=== PATIENT | male | born 1935 | race Caucasian/White ===

== ENCOUNTER 2018-02-25 14:17 | Emergency (ER) | payer MEDICARE, BC ==
[2018-02-25] MEDS ORDERED: Ondansetron 4 MG/2 ML SDV IVPUSH ONE (15:01)
[2018-02-25] MEDS ORDERED: Sodium Chloride 0.9% 500 ML IV ONE (15:01)
[2018-02-25] MEDS ORDERED: Sodium Chloride 0.9% 10 ML Syringe FLUSH PRN (15:01)
[2018-02-25] MEDS: HYDROmorphone 1 MG/ML Syringe IVPUSH ONE ×2 (15:27→16:07)
--- NOTE | 2018-02-25 15:43 | EDM.PDOC ---
ED HPI GENERAL MEDICAL PROBLEM - General Chief Complaint: Abdominal Pain Stated Complaint: PAIN SENT BY JUAREZ Time Seen by Provider: 02/25/18 14:45 Source of Information: Reports: Patient, RN Notes Reviewed - History of Present Illness INITIAL COMMENTS - FREE TEXT/NARRATIVE: 82-year-old male is been brought in by family with abdominal pain, abdominal distention nausea, vomiting 11 days status post surgery for pancreatic cancer. He states they did take out the tail of his pancreas and also his spleen 11 days ago. He was in the hospital 4 days and now has been home 6-7 days doing relatively okay until this morning when the above symptoms started. Has not had much appetite. He has not been eating well. Has been constipated, did have a bowel movement yesterday. No fever or chills. He started losing some blood tinged drainage from an area of his incision last evening that continues today. Abdomen Pain Score (Numeric/FACES): 8 - Related Data Allergies Allergy/AdvReac Type Severity Reaction Status Date / Time almond Allergy Facial Verified 12/07/17 16:19 Swelling lisinopril Allergy Swollen Verified 01/11/18 15:04 Tongue peanut Allergy Facial Verified 12/07/17 16:19 Swelling Home Meds: Home Meds Losartan Potassium 100 mg PO DAILY 12/07/17 [History] Past Medical History HEENT History: Reports: Macular Degeneration Cardiovascular History: Reports: Hypertension Genitourinary History: Reports: Prostate Disorder, Retention, Urinary, Other ( See Below) Other Genitourinary History: bladder mass Musculoskeletal History: Reports: Osteoarthritis, Osteoporosis Oncologic (Cancer) History: Reports: Bladder, Pancreatic Other Oncologic History: 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 Social & Family History - Family History Family Medical History: Noncontributory - Tobacco Use Smoking Status *Q: Former Smoker Used Tobacco, but Quit: Yes Month/Year Tobacco Last Used: 1977 - Caffeine Use Caffeine Use: Reports: Coffee - Living Situation & Occupation Living situation: Reports: Occupation: Retired ED ROS GENERAL - Review of Systems Review Of Systems: See Below Constitutional: Denies: Fever, Chills HEENT: Denies: Rhinitis, Sinus Problem, Throat Pain Respiratory: Denies: Shortness of Breath, Wheezing, Cough Cardiovascular: Denies: Chest Pain GI/Abdominal: Reports: Abdominal Pain (Moderate mid abdominal discomfort moderate upper and lower mid abdominal discomfort), Decreased Appetite (Since going home one week ago), Nausea, Vomiting (Emesis 1 earlier this morning). Denies: Diarrhea Musculoskeletal: Reports: Back Pain (Mild) Skin: Reports: Other (He has had some drainage from the lower area of his incision last evening, continuing today, blood tinged fluid.) ED EXAM, GI/ABD - Physical Exam Exam: See Below General Appearance: Alert, Mild Distress Eyes: Bilateral: Normal Appearance Throat/Mouth: Normal Inspection, Normal Oropharynx Head: Atraumatic. No: Facial Swelling Neck: Supple, Full Range of Motion, Other Respiratory/Chest: No Respiratory Distress (No JVD), Lungs Clear, Normal Breath Sounds. No: Rales, Rhonchi, Wheezing Cardiovascular: Regular Rate, Rhythm GI/Abdominal Exam: Other (He has a midline abdominal incision for the most part appears to be healing well but with very mild separation of the lower incision and blood tinged fluid on the dressing over that area., There is tenderness of the upper mid and lower abdomen along the incision.). No: Guarding, Rebound Back Exam: No: CVA Tenderness (L), CVA Tenderness (R) Extremities: Normal Inspection. No: Pedal Edema, Leg Pain Skin Exam: Warm, Dry, Normal Color Course - Vital Signs Last Recorded V/S: Last Vital Signs Temp 98.0 F 02/25/18 14:34 Pulse 86 02/25/18 14:34 Resp 20 02/25/18 14:34 BP 155/75 H 02/25/18 14:34 Pulse Ox 96 02/25/18 14:34 - Orders/Labs/Meds Orders: Active Orders 24 hr Category Date Time Status Peripheral IV Care [RC] . DIRECTED Care 02/25/18 15:01 Active CULTURE BLOOD [BC] Stat Lab 02/25/18 20:25 Received CULTURE BLOOD [BC] Stat Lab 02/25/18 20:35 Received Sodium Chloride 0.9% [Saline Flush] Med 02/25/18 15:01 Active 10 ml FLUSH ASDIRECTED PRN Vancomycin [Vancocin] 1 gm Med 02/25/18 20:59 Active Sodium Chloride 0.9% [Normal Saline] 250 ml IV ONETIME Blood Culture x2 Reflex Set [OM.PC] Stat Oth 02/25/18 20:04 Ordered Peripheral IV Insertion Adult [OM.PC] Stat Oth 02/25/18 15:00 Ordered Medication Orders Vancomycin HCl 1 gm/ Sodium (Chloride) 250 mls @ 250 mls/hr IV ONETIME ONE Stop: 02/25/18 21:58 Sodium Chloride (Saline Flush) 10 ml FLUSH ASDIRECTED PRN PRN Reason: Keep Vein Open Last Admin: 02/25/18 15:28 Dose: 10 ml Labs: Laboratory Tests 02/25/18 02/25/18 02/25/18 Range/Units 15:17 15:17 19:38 WBC 20.84 H (4.23-9.07) K/mm3 RBC 5.09 (4.63-6.08) M/mm3 Hgb 15.4 (13.7-17.5) gm/L Hct 44.9 (40.1-51.0) % MCV 88.2 (79.0-92.2) fl MCH 30.3 (25.7-32.2) pg MCHC 34.3 (32.2-35.5) g/dl RDW Std Deviation 41.1 (35.1-43.9) fL Plt Count 435 H (163-337) K/mm3 MPV 11.2 (9.4-12.3) fl Neut % (Auto) 94.3 H (34.0-67.9) % Lymph % (Auto) 1.3 L (21.8-53.1) % [place] % (Auto) 3.9 L (5.3-12.2) % Eos % (Auto) 0 L (0.8-7.0) Baso % (Auto) 0.1 (0.1-1.2) % Neut # (Auto) 19.62 H (1.78-5.38) K/mm3 Lymph # (Auto) 0.28 L (1.32-3.57) K/mm3 [place] # (Auto) 0.82 (0.30-0.82) K/mm3 Eos # (Auto) 0.00 L (0.04-0.54) K/mm3 Baso # (Auto) 0.03 (0.01-0.08) K/mm3 Manual Slide Review Abnormal smear Sodium 132 L (136-145) mEq/L Potassium 4.5 (3.5-5.1) mEq/L Chloride 94 L (98-107) mEq/L Carbon Dioxide 26 (21-32) mEq/L Anion Gap 16.5 H (5-15) BUN 17 (7-18) mg/dL Creatinine 1.1 (0.7-1.3) mg/dL Est Cr Clr Drug Dosing 47.57 mL/min Estimated GFR (MDRD) > 60 (>60) mL/min BUN/Creatinine Ratio 15.5 (14-18) Glucose 360 H (83-115) mg/dL Calcium 9.7 (8.5-10.1) mg/dL Total Bilirubin 0.9 (0.2-1.0) mg/dL AST 28 (15-37) U/L ALT 38 (16-63) U/L Alkaline Phosphatase 104 (46-116) U/L Total Protein 7.7 (6.4-8.2) g/dl Albumin 3.2 L (3.4-5.0) g/dl Globulin 4.5 gm/dL Albumin/Globulin Ratio 0.7 L (1-2) Lipase 66885 H (73-393) U/L Urine Color Yellow (Yellow) Urine Appearance Clear (Clear) Urine pH 5.5 (5.0-8.0) Ur Specific [place] 1.015 (1.005-1.030) Urine Protein 1+ H (Negative) Urine Glucose (UA) 2+ H (Negative) Urine Ketones 1+ H (Negative) Urine Occult Blood Trace-intact H (Negative) Urine Nitrite Negative (Negative) Urine Bilirubin 1+ H (Negative) Urine Urobilinogen 1.0 (0.2-1.0) Ur Leukocyte Esterase Negative (Negative) Urine RBC 0-5 (0-5) /hpf Urine WBC 0-5 (0-5) /hpf Ur Epithelial Cells Not seen (0-5) /hpf Urine Bacteria Rare (FEW) /hpf Fine Granular Casts 0-5 (0-5) /lpf Urine Mucus Rare H (FEW) /hpf Meds: Medications Generic Name Dose Route Start Last Admin Trade Name Freq PRN Reason Stop Dose Admin Vancomycin HCl 1 gm/ Sodium 250 mls @ 250 mls/hr 02/25/18 20:59 Chloride IV 02/25/18 21:58 ONETIME ONE Sodium Chloride 10 ml 02/25/18 15:01 02/25/18 15:28 Saline Flush FLUSH 10 ml ASDIRECTED PRN Administration Keep Vein Open Discontinued Medications Generic Name Dose Route Start Last Admin Trade Name Mayito PRN Reason Stop Dose Admin Acetaminophen 975 mg 02/25/18 19:52 02/25/18 20:15 Tylenol PO 02/25/18 19:53 975 mg NOW ONE Administration Diatrizoate Meglum/Diatrizoate Sod 90 ml 02/25/18 16:23 02/25/18 17:56 Gastrografin 37% PO 02/25/18 16:24 90 ml ONETIME ONE Administration Hydromorphone HCl 1 mg 02/25/18 15:13 02/25/18 16:07 Dilaudid IVPUSH 02/25/18 15:14 0.5 mg ONETIME ONE Administration Hydromorphone HCl 1 mg 02/25/18 20:55 Dilaudid IVPUSH 02/25/18 20:56 ONETIME ONE Sodium Chloride 500 mls @ 999 mls/hr 02/25/18 15:01 02/25/18 15:26 Normal Saline IV 02/25/18 15:31 999 mls/hr .BOLUS ONE Administration Piperacillin Sod/Tazobactam 100 mls @ 200 mls/hr 02/25/18 19:29 02/25/18 20: 39 Sod 4.5 gm/ Sodium Chloride IV 02/25/18 19:58 200 mls/hr ONETIME ONE Administration Iopamidol 100 ml 02/25/18 16:23 02/25/18 17:56 Isovue-300 (61%) IVPUSH 02/25/18 16:24 100 ml ONETIME ONE Administration Metoclopramide HCl 5 mg 02/25/18 16:13 02/25/18 16:25 Reglan IVPUSH 02/25/18 16:14 5 mg ONETIME ONE Administration Ondansetron HCl 4 mg 02/25/18 15:01 02/25/18 15:26 Zofran IVPUSH 02/25/18 15:02 4 mg ONETIME ONE Administration Sodium Chloride 10 ml 02/25/18 16:23 02/25/18 17:56 Saline Flush FLUSH 02/25/18 16:24 10 ml ONETIME ONE Administration - Re-Assessments/Exams Free Text/Narrative Re-Assessment/Exam: 02/25/18 19:45. White blood count initially came back quite high, over 20,000 with somewhat of a left shift. Therefore it was felt that he did need to have CT of his abdomen to rule out abscess or other obvious infectious process. CT was done and does show fluid in the area of surgery involving the left spleen, tail of the pancreas. There was no abscess or other obvious area of infection intra-abdominally. Chest x-ray did show some haziness of the right lung base read out as not cardiomegaly and some pulmonary vascular congestion but no infiltrate. Ua still pending. 02/25/18 20:30. I did discuss treatment options with patient and family, being admitted here for IV antibiotics and further treatment versus transfer back to [place]. I also did consult with Dr. Villalobos, our Hospitalist. After further discussion patient and family have determined they would prefer transfer back to [facility]. I discussed this with , Hospitalist, [facility] who does accept patient in transfer. 02/25/18 21:10. Ua has come back neg. 4.5 gram zosyn almost done, will than start vancomycin 1 gram IV, he will be transferred by ground ambulance. Departure - Departure Time of Disposition: 20:25 Disposition: DC/Tfer to Acute Hospital 02 Condition: Serious Clinical Impression: Abdominal pain Qualifiers: Abdominal location: generalized Qualified Code(s): R10.84 - Generalized abdominal pain Fever Qualifiers: Fever type: unspecified Qualified Code(s): R50.9 - Fever, unspecified Pancreatic cancer Qualifiers: Pancreatic malignancy location: unspecified Qualified Code(s): C25.9 - Malignant neoplasm of pancreas, unspecified Vomiting Qualifiers: Vomiting type: unspecified Vomiting Intractability: non-intractable - Discharge Information Referrals: Ketan Acevedo MD [Primary Care Provider] - Forms: ED Department Discharge - My Orders Last 24 Hours: My Active Orders 02/25/18 15:00 Peripheral IV Insertion Adult [OM.PC] Stat 02/25/18 15:01 Peripheral IV Care [RC] . DIRECTED Sodium Chloride 0.9% [Saline Flush] 10 ml FLUSH ASDIRECTED PRN 02/25/18 20:04 Blood Culture x2 Reflex Set [OM.PC] Stat 02/25/18 20:25 CULTURE BLOOD [BC] Stat 02/25/18 20:35 CULTURE BLOOD [BC] Stat 02/25/18 20:59 Vancomycin [Vancocin] 1 gm Sodium Chloride 0.9% [Normal Saline] 250 ml IV ONETIME - Assessment/Plan Last 24 Hours: My Active Orders 02/25/18 15:00 Peripheral IV Insertion Adult [OM.PC] Stat 02/25/18 15:01 Peripheral IV Care [RC] . DIRECTED Sodium Chloride 0.9% [Saline Flush] 10 ml FLUSH ASDIRECTED PRN 02/25/18 20:04 Blood Culture x2 Reflex Set [OM.PC] Stat 02/25/18 20:25 CULTURE BLOOD [BC] Stat 02/25/18 20:35 CULTURE BLOOD [BC] Stat 02/25/18 20:59 Vancomycin [Vancocin] 1 gm Sodium Chloride 0.9% [Normal Saline] 250 ml IV ONETIME
[2018-02-25] MEDS ORDERED: Metoclopramide 10 MG/2 ML SDV IVPUSH ONE (16:13)
[2018-02-25] MEDS ORDERED: Iopamidol 612 MG/ML 100 ML Bottle IVPUSH ONE (16:23)
[2018-02-25] MEDS ORDERED: Diatrizoate Meglumine/Diatrizoate Sodium 37% 120 ML Bottle PO ONE (16:23)
[2018-02-25] MEDS ORDERED: Sodium Chloride 0.9% 10 ML Syringe FLUSH ONE (16:23)
--- NOTE | 2018-02-25 17:38 | CR ---
Abdomen: Supine and upright views of the abdomen were obtained. Comparison: Prior CT abdomen and pelvis exam of 12/06/17. Surgical clips are noted within the upper abdomen. Bowel gas pattern is normal. No free air is seen. Scattered degenerative change is noted within the spine. Partially visualized infusion catheter is seen within the chest. Calcifications are seen within the pelvis compatible with phleboliths and mild arterial calcification. Impression: 1. Incidental findings. Diagnostic code #2
--- NOTE | 2018-02-25 18:19 | CT ---
CT abdomen and pelvis Technique: Multiple axial sections were obtained from above the dome of the diaphragm inferiorly through the pubic symphysis. Intravenous and oral contrast was given. Delayed images were obtained through the bladder. Comparison: Prior CT abdomen and pelvis study of 12/06/17. Findings: Fluid is seen within the expected region of the pancreatic body and tail. Fluid is seen within the expected region of the spleen. No spleen is seen. Body and tail the pancreas are also not seen. Previous cholecystectomy is noted. Haziness is noted within the mesentery. Visualized lung bases shows a pleural thickening within the left base with calcification. Atelectasis seen within both lung bases as well as small subpleural blebs. Liver contains no focal abnormality. Adrenal glands show no nodule. Kidneys show no hydronephrosis or mass. Adrenal glands show no nodule. Aorta shows atherosclerotic calcification with mild areas of ectasia. No aneurysm is seen. Very small fat-containing umbilical hernia is seen. Soft tissue abnormality again noted within the anterior bladder. Small amount of fluid seen within the right inguinal hernia. Prostate calcifications are seen. Small amount of fluid seen within the dependent pelvis. Appendix is seen and is normal. No bowel dilatation is seen. Bone window settings were reviewed which shows scattered degenerative change within the spine. Delayed images shows contrast within the distal ureters and bladder. Impression: 1. Fluid in the expected region of the pancreatic body and tail and in the area of the spleen. Previous partial pancreatectomy is seen as well as splenectomy. Prior cholecystectomy also noted. Fluid is also seen within a right inguinal hernia as well as within the dependent pelvis. Fluid has simple Hounsfield unit measurements and most likely represents areas of seroma and fluid from previous surgery. 2. Very small fat-containing umbilical hernia. 3. Haziness within the mesentery most likely postsurgical in etiology. 4. Soft tissue thickening within the anterior bladder most likely representing bladder carcinoma which is similar to previous exam. 5. Other incidental findings as noted above. Diagnostic code #9
[2018-02-25] MEDS ORDERED: Piperacillin/Tazobactam 4.5 GM in Sodium Chloride 0.9% 100 ML IV ONE (19:29)
[2018-02-25] MEDS ORDERED: Acetaminophen 325 MG Tab PO ONE (19:52)
--- NOTE | 2018-02-25 20:06 | CR ---
Chest: Portable view of the chest was obtained. Comparison: No prior chest x-ray is available. Heart is enlarged. Slight tortuosity of the thoracic aorta is seen. Superior mediastinum is slightly widened. Infusion catheter is seen entering from the left side. Pulmonary vessels are minimally congested. Lungs otherwise are clear. Bony structures are osteopenic. Impression: 1. Cardiomegaly. 2. Minimal pulmonary vascular congestion. 3. Widened superior mediastinum, difficult to exclude adenopathy or etiology from tortuous great vessels. Consider non-emergent chest CT to further evaluate. Diagnostic code #9
[2018-02-25] MEDS ORDERED: HYDROmorphone 1 MG/ML Syringe IVPUSH ONE (20:55)
== END 2018-02-25 21:23 ==
LOC: JD.ED 14:17
DX: C25.9 Malignant neoplasm of pancreas, unspecified (principal); R11.2 Nausea with vomiting, unspecified; I10 Essential (primary) hypertension; Z91.018 Allergy to other foods; Z91.010 Allergy to peanuts; Z79.899 Other long term (current) drug therapy; Z87.891 Personal history of nicotine dependence
CPT/HCPCS: 36415; 71045; 74019; 74177; 80053; 81001; 83690; 85025; 87040; 96361; 96365; 96367; 96375; 96376; 99285; A9270; J1170; J2405; J2543; J2765; J3370; J7030; J7040; J7050; Q9963; Q9967

== ENCOUNTER 2018-06-07 12:44 | Emergency (ER) | payer MEDICARE, BC ==
--- NOTE | 2018-06-07 13:56 | EDM.PDOC ---
ED HPI GENERAL MEDICAL PROBLEM - General Chief Complaint: Genitourinary Problem Stated Complaint: CATHETER ISSUES Time Seen by Provider: 06/07/18 13:03 Source of Information: Reports: Patient, RN Notes Reviewed History Limitations: Reports: No Limitations - History of Present Illness INITIAL COMMENTS - FREE TEXT/NARRATIVE: Patient is an 82-year-old male who presents to the ED for the evaluation of blood in his urine. The patient has a history of bladder cancer for 6 months, and has had numerous urinary catheter since then. He is a patient of Dr. Cabrera. He states that he had a recent catheter placed on Wednesday for possible hydronephrosis and has been having increased bleeding with clots in his urine since Wednesday. He notes that the catheter insertion was quite traumatic in nature. He thought that the nurse didn't use any lubrication to pass a catheter into his urethra. He notes that he normally passes some small clots but not in this amount. His daughter did speak with the urologist and the urologist had some concerns to have the catheter irrigated and to have a possible culture of the urine. The patient notes that he did have an episode of dizziness after getting up quickly this morning as well. The patient does note that he has a follow-up appointment with urology this Wednesday06/10/18. He denies any pain at this time. - Related Data Allergies Allergy/AdvReac Type Severity Reaction Status Date / Time almond Allergy Facial Verified 12/07/17 16:19 Swelling lisinopril Allergy Swollen Verified 01/11/18 15:04 Tongue morphine Allergy Hives Verified 06/07/18 13:02 Home Meds: Home Meds NIFEdipine [Procardia] 1 tab PO DAILY 06/07/18 [History] Oxybutynin 1 tab PO DAILY 06/07/18 [History] cephALEXin [Keflex] 500 mg PO TID #21 cap 06/07/18 [Rx] glipiZIDE [Glucotrol XL] 1 tab PO DAILY 06/07/18 [History] Past Medical History HEENT History: Reports: Macular Degeneration Cardiovascular History: Reports: Hypertension Genitourinary History: Reports: Prostate Disorder, Retention, Urinary, Other ( See Below) Other Genitourinary History: bladder mass Musculoskeletal History: Reports: Osteoarthritis, Osteoporosis Endocrine/Metabolic History: Reports: Diabetes, Type II Oncologic (Cancer) History: Reports: Bladder, Pancreatic Other Oncologic History: 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 - Past Surgical History GI Surgical History: Reports: Other (See Below) Other GI Surgeries/Procedures: spleenectomy and partical pancreas removal Social & Family History - Family History Family Medical History: Noncontributory - Tobacco Use Smoking Status *Q: Former Smoker Used Tobacco, but Quit: Yes Month/Year Tobacco Last Used: 1977 - Caffeine Use Caffeine Use: Reports: Coffee - Recreational Drug Use Recreational Drug Use: No - Living Situation & Occupation Living situation: Reports: Occupation: Retired ED ROS GENERAL - Review of Systems Review Of Systems: See Below Constitutional: Denies: Fever, Chills HEENT: Reports: No Symptoms Respiratory: Reports: No Symptoms Cardiovascular: Reports: No Symptoms Endocrine: Reports: No Symptoms GI/Abdominal: Reports: No Symptoms : Reports: Hematuria. Denies: Dysuria, Urinary Retention Musculoskeletal: Reports: No Symptoms Skin: Reports: No Symptoms Neurological: Reports: No Symptoms Psychiatric: Reports: No Symptoms Hematologic/Lymphatic: Reports: No Symptoms Immunologic: Reports: No Symptoms ED EXAM, RENAL/ - Physical Exam Exam: See Below Exam Limited By: No Limitations General Appearance: Alert, WD/WN, No Apparent Distress Eye Exam: Bilateral Eye: Normal Inspection Respiratory/Chest: No Respiratory Distress, Lungs Clear, Normal Breath Sounds, No Accessory Muscle Use, Chest Non-Tender Cardiovascular: Normal Peripheral Pulses, Regular Rate, Rhythm, No Murmur GI/Abdominal: Normal Bowel Sounds, Soft, Non-Tender, No Distention, No Mass (Male) Exam: Normal Inspection (with urinary catheter in place, slight drainage noted at urethral opening.) Extremities: Normal Inspection, Normal Capillary Refill Neurological: Alert, Oriented, Normal Cognition, No Motor/Sensory Deficits Psychiatric: Normal Affect, Normal Mood Skin Exam: Warm, Dry, Intact, Normal Color, No Rash Course - Vital Signs Last Recorded V/S: Last Vital Signs Temp 98.2 F 06/07/18 12:56 Pulse 96 06/07/18 12:56 Resp 18 06/07/18 12:56 BP 137/72 06/07/18 12:56 Pulse Ox 98 06/07/18 12:56 - Orders/Labs/Meds Orders: Active Orders 24 hr Category Date Time Status CULTURE URINE [RM] Stat Lab 06/07/18 14:11 Ordered Labs: Laboratory Tests 06/07/18 06/07/18 Range/Units 13:30 14:11 WBC 7.36 (4.23-9.07) K/mm3 RBC 4.13 L (4.63-6.08) M/mm3 Hgb 11.4 L (13.7-17.5) gm/L Hct 35.6 L (40.1-51.0) % MCV 86.2 (79.0-92.2) fl MCH 27.6 (25.7-32.2) pg MCHC 32.0 L (32.2-35.5) g/dl RDW Std Deviation 44.7 H (35.1-43.9) fL Plt Count 279 (163-337) K/mm3 MPV 12.0 (9.4-12.3) fl Neut % (Auto) 60.4 (34.0-67.9) % Lymph % (Auto) 23.6 (21.8-53.1) % [place] % (Auto) 12.5 H (5.3-12.2) % Eos % (Auto) 2.0 (0.8-7.0) Baso % (Auto) 0.5 (0.1-1.2) % Neut # (Auto) 4.44 (1.78-5.38) K/mm3 Lymph # (Auto) 1.74 (1.32-3.57) K/mm3 [place] # (Auto) 0.92 H (0.30-0.82) K/mm3 Eos # (Auto) 0.15 (0.04-0.54) K/mm3 Baso # (Auto) 0.04 (0.01-0.08) K/mm3 Manual Slide Review Abnormal smear Urine Color Red H (Yellow) Urine Appearance Turbid H (Clear) Urine pH 6.5 (5.0-8.0) Ur Specific [place] 1.020 (1.005-1.030) Urine Protein 3+ H (Negative) Urine Glucose (UA) 2+ H (Negative) Urine Ketones Negative (Negative) Urine Occult Blood 3+ H (Negative) Urine Nitrite Positive H (Negative) Urine Bilirubin 1+ H (Negative) Urine Urobilinogen 1.0 (0.2-1.0) Ur Leukocyte Esterase 3+ H (Negative) Urine RBC Too numerous to cnt H (0-5) /hpf Urine WBC 40-50 H (0-5) /hpf Urine WBC Clumps Few (NOT SEEN) /hpf Ur Epithelial Cells 0-5 (0-5) /hpf Urine Bacteria Moderate H (FEW) /hpf Urine Mucus Not seen (FEW) /hpf - Re-Assessments/Exams Free Text/Narrative Re-Assessment/Exam: 06/07/18 13:57 Patient presents to the ED for the evaluation of blood in his catheter bag. I have ordered a urinalysis with culture, and we'll have the nurse irrigate the catheter if indicated. I have also ordered a CBC to see if he has lost a significant amount of blood over the weekend. His story is suspicious for a traumatic catheter insertion in nature but he should still not be having this amount of bleeding 4 days post insertion. 06/07/18 15:24 Patient's UA is back and demonstrate a positive UTI at this time, I did call Dr. Lan at [facility] in [place], and he suggests using Keflex 500 mg 3 times a day for at least 7 days. He does have an appointment to see the gentleman on Wednesday, the patient will be left known if his urine culture suggests that the Keflex is not appropriate for treatment of his UTI. The patient's CBC is essentially within normal limits as well he is not anemic at this time. Departure - Departure Time of Disposition: 15:28 Disposition: Home, Self-Care 01 Condition: Fair Clinical Impression: UTI, Urinary tract infectious disease - Discharge Information *PRESCRIPTION DRUG MONITORING PROGRAM REVIEWED*: No *COPY OF PRESCRIPTION DRUG MONITORING REPORT IN PATIENT HOWIE: No Prescriptions: cephALEXin [Keflex] 500 mg PO TID #21 cap Instructions: Urinary Tract Infection, Adult, [id number], Urine Culture and Sensitivity Testing Referrals: Ketan Acevedo MD [Primary Care Provider] - Forms: ED Department Discharge Additional Instructions: You have been evaluated in the ED today for your blood in your urinary catheter bag. Your urinalysis was positive for UTI at this ED visit. I was in touch with Dr. Lan and he recommended placing you on Keflex, 500 mg 3 times daily for 7 days. Your urine was sent for culture, and you will be let known of the results if you should require an antibiotic change. This antibiotic has been electronically prescribed to the [place] pharmacy located in the [facility]. Please keep your appointment with Dr. Lan this June 10. Please return to the ED if her symptoms should change or worsen. - My Orders Last 24 Hours: My Active Orders 06/07/18 14:11 CULTURE URINE [RM] Stat - Assessment/Plan Last 24 Hours: My Active Orders 06/07/18 14:11 CULTURE URINE [RM] Stat
== END 2018-06-07 15:50 | disposition home or self-care (01) ==
LOC: JD.ED 12:44
DX: N39.0 Urinary tract infection, site not specified (principal); I10 Essential (primary) hypertension; Z87.891 Personal history of nicotine dependence; Z88.8 Allergy status to other drugs, medicaments and biological substances; Z79.84 Long term (current) use of oral hypoglycemic drugs
CPT/HCPCS: 36415; 81001; 85025; 87086; 87088; 87186; 99283

== ENCOUNTER 2018-08-03 19:29 | Emergency (ER) | payer MEDICARE, BC ==
--- NOTE | 2018-08-03 20:28 | EDM.PDOC ---
ED HPI GENERAL MEDICAL PROBLEM - General Chief Complaint: Genitourinary Problem Stated Complaint: GROIN MORRIS Time Seen by Provider: 08/03/18 20:16 - History of Present Illness INITIAL COMMENTS - FREE TEXT/NARRATIVE: 82-year-old male presents emergency room with burning with urination This started earlier today after he had his second [place] catheter removed he said this catheter in from month another catheter in for 2 months prior to this. He is not any fevers or chills is just uncomfortable for him to avoid. He has not had any fevers or chills no nausea vomiting. He's been treated for pancreatic cancer. - Related Data Allergies Allergy/AdvReac Type Severity Reaction Status Date / Time almond Allergy Facial Verified 12/07/17 16:19 Swelling lisinopril Allergy Swollen Verified 01/11/18 15:04 Tongue morphine Allergy Hives Verified 06/07/18 13:02 Home Meds: Home Meds NIFEdipine [Procardia] 1 tab PO DAILY 06/07/18 [History] Oxybutynin 1 tab PO DAILY 06/07/18 [History] glipiZIDE [Glucotrol XL] 1 tab PO DAILY 06/07/18 [History] Ascorbic Acid [Vitamin C] 0 mg PO DAILY 08/03/18 [History] Bilberry 0 mg PO DAILY 08/03/18 [History] Finasteride 0 mg PO DAILY 08/03/18 [History] Nitrofurantoin Monohyd/M-Cryst [Macrobid 100 mg Capsule] 100 mg PO Q12H #14 capsule 08/03/18 [Rx] Pantoprazole Sodium [Protonix] 0 mg PO DAILY 08/03/18 [History] Phenazopyridine HCl [Pyridium] 100 mg PO Q8H #5 tablet 08/03/18 [Rx] Tamsulosin HCl [Flomax] 0.4 mg PO DAILY 08/03/18 [History] Vit A/Vit C/Vit E/Zinc/Copper [Preservision] 0 mg PO DAILY 08/03/18 [History] Past Medical History HEENT History: Reports: Macular Degeneration Cardiovascular History: Reports: Hypertension Genitourinary History: Reports: Prostate Disorder, Retention, Urinary, Other ( See Below) Other Genitourinary History: bladder mass Musculoskeletal History: Reports: Osteoarthritis, Osteoporosis Endocrine/Metabolic History: Reports: Diabetes, Type II Oncologic (Cancer) History: Reports: Bladder, Pancreatic Other Oncologic History: 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 - Past Surgical History GI Surgical History: Reports: Other (See Below) Other GI Surgeries/Procedures: spleenectomy and partical pancreas removal Social & Family History - Family History Family Medical History: Noncontributory - Caffeine Use Caffeine Use: Reports: Coffee - Living Situation & Occupation Living situation: Reports: Occupation: Retired ED ROS GENERAL - Review of Systems Review Of Systems: See Below Constitutional: Reports: No Symptoms Respiratory: Reports: No Symptoms Cardiovascular: Reports: No Symptoms Endocrine: Reports: No Symptoms GI/Abdominal: Reports: No Symptoms : Reports: Dysuria Skin: Reports: No Symptoms Neurological: Reports: No Symptoms ED EXAM, RENAL/ - Physical Exam Exam: See Below Exam Limited By: No Limitations General Appearance: Alert, No Apparent Distress Head: Atraumatic, Normocephalic Neck: Normal Inspection, Supple, Non-Tender, Full Range of Motion Respiratory/Chest: No Respiratory Distress, Lungs Clear, Normal Breath Sounds GI/Abdominal: Normal Bowel Sounds, Soft, Non-Tender, No Organomegaly, Other (In the upper left lower quadrant he has a draining site that is still oozing a little bit this was placed for his pancreatic cancer surgery) Back Exam: Normal Inspection, CVA Tenderness (L), CVA Tenderness (R) Course - Vital Signs Last Recorded V/S: Last Vital Signs Temp 37.1 C 08/03/18 20:18 Pulse 107 H 08/03/18 20:18 Resp 18 08/03/18 20:18 BP 172/90 H 08/03/18 20:18 Pulse Ox 99 08/03/18 20:18 - Orders/Labs/Meds Orders: Active Orders 24 hr Category Date Time Status CULTURE URINE [RM] Stat Lab 08/03/18 21:35 Ordered Labs: Laboratory Tests 08/03/18 Range/Units 20:30 Urine Color Yellow (Yellow) Urine Appearance Cloudy H (Clear) Urine pH 6.5 (5.0-8.0) Ur Specific [place] 1.020 (1.005-1.030) Urine Protein 2+ H (Negative) Urine Glucose (UA) 1+ H (Negative) Urine Ketones Negative (Negative) Urine Occult Blood 2+ H (Negative) Urine Nitrite Negative (Negative) Urine Bilirubin Negative (Negative) Urine Urobilinogen 0.2 (0.2-1.0) Ur Leukocyte Esterase 1+ H (Negative) Urine RBC 20-30 H (0-5) /hpf Urine WBC Too numerous to cnt H (0-5) /hpf Urine WBC Clumps Moderate (NOT SEEN) /hpf Ur Squamous Epith Cells 0-5 (0-5) /hpf Urine Bacteria Many H (FEW) /hpf Urine Mucus Moderate H (FEW) /hpf - Re-Assessments/Exams Free Text/Narrative Re-Assessment/Exam: 08/03/18 21:38 Urine is strongly suspicious of infectious process. We'll start him on antibiotics is also having some discomfort with voiding start him on some pyridium Departure - Departure Time of Disposition: 21:39 Disposition: DC/Tfer to [facility] Clinical Impression: Urinary tract infection - Discharge Information Prescriptions: Nitrofurantoin Monohyd/M-Cryst [Macrobid 100 mg Capsule] 100 mg PO Q12H #14 capsule Phenazopyridine HCl [Pyridium] 100 mg PO Q8H #5 tablet Referrals: Ketan Acevedo MD [Primary Care Provider] - Forms: ED Department Discharge Additional Instructions: Treatment emergency room with any questions problems worsening symptoms. Follow-up with your regular doctor on Wednesday if needed and again 2 or 3 days after your all done with the antibiotics if needed. Take all medications as directed - My Orders Last 24 Hours: My Active Orders 08/03/18 21:35 CULTURE URINE [RM] Stat - Assessment/Plan Last 24 Hours: My Active Orders 08/03/18 21:35 CULTURE URINE [RM] Stat
[2018-08-03] MEDS ORDERED: Nitrofurantoin Monohydrate/Macrocrystalline 100 MG Cap PO ONE (21:39)
[2018-08-03] MEDS ORDERED: Phenazopyridine 95 MG Tab PO ONE (21:59)
[2018-08-03] MEDS ORDERED: Phenazopyridine 95 MG Tab ONE (22:01)
[2018-08-04] MEDS ORDERED: Phenazopyridine 95 MG Tab PO ONE (09:00)
== END 2018-08-03 22:12 | disposition home or self-care (01) ==
LOC: JD.ED 19:29
DX: N39.0 Urinary tract infection, site not specified (principal); I10 Essential (primary) hypertension; E11.9 Type 2 diabetes mellitus without complications; Z88.8 Allergy status to other drugs, medicaments and biological substances; Z79.899 Other long term (current) drug therapy; Z79.84 Long term (current) use of oral hypoglycemic drugs
CPT/HCPCS: 81001; 87086; 99283; A9270; 87088; 87186

== ENCOUNTER 2018-08-24 16:49 | Inpatient (IN) | payer MEDICARE, BC ==
[2018-08-24] MEDS ORDERED: Sodium Chloride 0.9% 500 ML IV ONE ×2 (17:08→19:30)
[2018-08-24] MEDS ORDERED: Acetaminophen 325 MG Tab PO ONE (17:19)
[2018-08-24] MEDS: Sodium Chloride 0.9% 10 ML Syringe FLUSH PRN (17:30)
[2018-08-24] MEDS ORDERED: cefTRIAXone 2 GM Vial IV ONE (18:53)
--- NOTE | 2018-08-24 19:21 | EDM.PDOC ---
ED HPI GENERAL MEDICAL PROBLEM - General Chief Complaint: General Stated Complaint: WEAK Time Seen by Provider: 08/24/18 17:08 Source of Information: Reports: Patient, RN Notes Reviewed - History of Present Illness INITIAL COMMENTS - FREE TEXT/NARRATIVE: 83-year-old male comes in with fever or chills generalized weakness and difficulty walking. He does have history of bladder cancer. Just finished chemo and radiaiton about 2 weeks ago. Just finished a course of abx about a week ago. He also did have a catheter was just removed a few weeks ago. His states that he has had voiding frequency increasing over the past day or 2. He does not feel that he is retaining. He he may have started with low- grade fever last evening but more definitively low-grade fever chills weakness difficulty walking this afternoon. His states he is just going very small amounts at a time. He does have some chronic low back pain but that has not been worse than usual. No abdominal pain nausea or vomiting. He does have history of type 2 diabetes on oral glipizide in addition to his other current medications. Mid-Sternal Chest Pain Score (Numeric/FACES): 1 - Related Data Allergies Allergy/AdvReac Type Severity Reaction Status Date / Time almond Allergy Facial Verified 08/25/18 02:15 Swelling lisinopril Allergy Swollen Verified 08/25/18 02:15 Tongue morphine Allergy Hives Verified 08/25/18 02:15 Home Meds: Home Meds Oxybutynin 5 tab PO DAILY 06/07/18 [History] glipiZIDE [Glucotrol XL] 5 mg PO QAM 06/07/18 [History] Ascorbic Acid [Vitamin C] 1,000 mg PO DAILY 08/03/18 [History] Finasteride 5 mg PO DAILY 08/03/18 [History] Pantoprazole Sodium [Protonix] 40 mg PO DAILY 08/03/18 [History] Tamsulosin HCl [Flomax] 0.4 dose PO DAILY 08/03/18 [History] Vit A/Vit C/Vit E/Zinc/Copper [Preservision] 1 tab PO DAILY 08/03/18 [History] NIFEdipine [Nifedipine ER] 60 mg PO DAILY 08/25/18 [History] Past Medical History HEENT History: Reports: Macular Degeneration Cardiovascular History: Reports: Hypertension Respiratory History: Reports: None Genitourinary History: Reports: Prostate Disorder, Retention, Urinary, Other ( See Below) Other Genitourinary History: bladder mass Musculoskeletal History: Reports: Osteoarthritis, Osteoporosis Neurological History: Reports: None Psychiatric History: Reports: None Endocrine/Metabolic History: Reports: Diabetes, Type II Hematologic History: Reports: None Immunologic History: Reports: None Oncologic (Cancer) History: Reports: Bladder, Pancreatic Other Oncologic History: 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 Dermatologic History: Reports: None - Past Surgical History GI Surgical History: Reports: Other (See Below) Other GI Surgeries/Procedures: spleenectomy and partical pancreas removal Social & Family History - Family History Family Medical History: Noncontributory - Tobacco Use Smoking Status *Q: Never Smoker - Caffeine Use Caffeine Use: Reports: Coffee - Living Situation & Occupation Living situation: Reports: Occupation: Retired ED ROS GENERAL - Review of Systems Review Of Systems: See Below Constitutional: Reports: Fever, Chills, Malaise, Weakness, Fatigue HEENT: Denies: Throat Pain Respiratory: Reports: Shortness of Breath (Mild ). Denies: Cough Cardiovascular: Denies: Chest Pain GI/Abdominal: Reports: Decreased Appetite. Denies: Abdominal Pain, Nausea, Vomiting : Reports: Frequency Musculoskeletal: Reports: Back Pain Neurological: Reports: Dizziness, Difficulty Walking, Weakness (Generalized) ED EXAM, GENERAL - Physical Exam Exam: See Below General Appearance: Alert, No Apparent Distress, Other Eye Exam: Bilateral Eye: PERRL Throat/Mouth: Other Head: Atraumatic (Oral mucosa somewhat dry). No: Facial Swelling Neck: Supple, Full Range of Motion Respiratory/Chest: No Respiratory Distress, Lungs Clear, Normal Breath Sounds Cardiovascular: Tachycardia GI/Abdominal: Soft, Non-Tender. No: Guarding Back Exam: No: CVA Tenderness (L), CVA Tenderness (R) Extremities: Normal Inspection, Pedal Edema (Trace bilateral). No: Leg Pain, Increased Warmth, Redness Neurological: Alert, Oriented, No Motor/Sensory Deficits Skin Exam: Warm, Dry, Normal Color Course - Vital Signs Last Recorded V/S: Last Vital Signs Temp 97.6 F 08/25/18 08:00 Pulse 98 08/25/18 06:45 Resp 18 08/25/18 08:00 BP 96/60 08/25/18 08:00 Pulse Ox 95 06/27/19 08:00 - Orders/Labs/Meds Orders: Active Orders 24 hr Category Date Time Status CULTURE URINE [RM] Stat Lab 08/24/18 19:55 Received Sodium Chloride 0.9% [Saline Flush] Med 08/24/18 17:08 Active 10 ml FLUSH ASDIRECTED PRN Peripheral IV Insertion Adult [OM.PC] Stat Oth 08/24/18 17:08 Ordered Medication Orders Acetaminophen (Tylenol) 650 mg PO Q4H PRN PRN Reason: Pain (Mild 1-3)/fever Hydrocodone Bitart/Acetaminophen ([place] 325-5 Mg) 1 tab PO Q4H PRN PRN Reason: Pain (moderate 4-6) Finasteride (Proscar) 5 mg PO DAILY [facility] Ceftriaxone Sodium 2 gm/ (Sodium Chloride) 100 mls @ 200 mls/hr IV Q24H [facility] Magnesium Sulfate 4 gm/ Premix 50 mls @ 12.5 mls/hr IV ONETIME ONE Stop: 08/25/18 11:30 Last Admin: 08/25/18 07:54 Dose: 12.5 mls/hr Heparin Sodium/Dextrose (Heparin 25,000 Units In D5w 500 Ml) 25,000 units in 500 mls @ 14.2 mls/hr IV TITRATE [facility]; Protocol Last Admin: 08/25/18 08:51 Dose: 710 units/hr, 14.2 mls/hr Lactated Ringer's (Ringers, Lactated) 1,000 mls @ 75 mls/hr IV ASDIRECTED [place] Meropenem/Sodium Chloride 500 (mg/ Premix) 50 mls @ 100 mls/hr IV Q8H [facility] Last Admin: 08/25/18 08:44 Dose: 100 mls/hr Vancomycin HCl 1 gm/Vancomycin HCl 250 mg/ Sodium Chloride 250 mls @ 166.667 mls/hr IV ONETIME ONE Stop: 08/25/18 09:59 Last Admin: 08/25/18 09:14 Dose: 166.667 mls/hr Insulin Human Lispro (Humalog) 0 unit SUBCUT QIDACANDBED [facility]; Protocol Last Admin: 08/25/18 07:53 Dose: 1 unit Ondansetron HCl (Zofran Odt) 4 mg PO Q4H PRN PRN Reason: nausea, able to take PO Ondansetron HCl (Zofran) 4 mg IV Q4H PRN PRN Reason: Nausea/Vomiting Oxybutynin Chloride (Oxybutynin) 5 mg PO DAILY [facility] Pantoprazole Sodium (Protonix) 40 mg PO DAILY@0700 [facility] Last Admin: 08/25/18 07:54 Dose: 40 mg Sodium Chloride (Saline Flush) 10 ml FLUSH ASDIRECTED PRN PRN Reason: Keep Vein Open Last Admin: 08/24/18 17:30 Dose: 10 ml Tamsulosin HCl (Flomax) 0.4 mg PO DAILY [facility] Last Admin: 08/25/18 07:59 Dose: 0.4 mg Vancomycin HCl (Pharmacy To Dose - Vancomycin) 0 dose .XX ASDIRECTED PRN PRN Reason: RX TO DOSE [facility] Labs: Laboratory Tests 08/24/18 08/24/18 08/24/18 Range/Units 17:35 17:40 17:40 WBC 18.74 H (4.23-9.07) K/mm3 RBC 3.55 L (4.63-6.08) M/mm3 Hgb 10.5 L (13.7-17.5) gm/L Hct 31.9 L (40.1-51.0) % MCV 89.9 D (79.0-92.2) fl MCH 29.6 (25.7-32.2) pg MCHC 32.9 (32.2-35.5) g/dl RDW Std Deviation 59.5 H (35.1-43.9) fL Plt Count 235 (163-337) K/mm3 MPV 10.5 (9.4-12.3) fl Neutrophils % (Manual) 82 H (40-60) % Band Neutrophils % 0 (0-10) % Lymphocytes % (Manual) 10 L (20-40) % Atypical Lymphs % 0 % Monocytes % (Manual) 7 (2-10) % Eosinophils % (Manual) 0 L (0.8-7.0) % Basophils % (Manual) 1 (0.2-1.2) Platelet Estimate Adequate Plt Morphology Comment Normal RBC Morph Comment Normal Sodium 131 L (136-145) mEq/L Potassium 4.2 (3.5-5.1) mEq/L Chloride 98 (98-107) mEq/L Carbon Dioxide 24 (21-32) mEq/L Anion Gap 13.2 (5-15) BUN 29 H (7-18) mg/dL Creatinine 1.4 H (0.7-1.3) mg/dL Est Cr Clr Drug Dosing TNP Estimated GFR (MDRD) 48 (>60) mL/min BUN/Creatinine Ratio 20.7 H (14-18) Glucose 153 H (83-115) mg/dL Lactic Acid (0.4-2.0) mmol/L Calcium 8.8 (8.5-10.1) mg/dL Total Bilirubin 1.1 H (0.2-1.0) mg/dL AST 43 H (15-37) U/L ALT 19 (16-63) U/L Alkaline Phosphatase 72 (46-116) U/L C-Reactive Protein 22.5 H* (<1.0) mg/dL Total Protein 6.2 L (6.4-8.2) g/dl Albumin 2.6 L (3.4-5.0) g/dl Globulin 3.6 gm/dL Albumin/Globulin Ratio 0.7 L (1-2) Urine Color (Yellow) Urine Appearance (Clear) Urine pH (5.0-8.0) Ur Specific [place] (1.005-1.030) Urine Protein (Negative) Urine Glucose (UA) (Negative) Urine Ketones (Negative) Urine Occult Blood (Negative) Urine Nitrite (Negative) Urine Bilirubin (Negative) Urine Urobilinogen (0.2-1.0) Ur Leukocyte Esterase (Negative) Urine RBC (0-5) /hpf Urine WBC (0-5) /hpf Urine WBC Clumps (NOT SEEN) /hpf Ur Epithelial Cells (0-5) /hpf Urine Bacteria (FEW) /hpf Urine Mucus (FEW) /hpf 08/24/18 08/24/18 Range/Units 19:36 20:00 WBC (4.23-9.07) K/mm3 RBC (4.63-6.08) M/mm3 Hgb (13.7-17.5) gm/L Hct (40.1-51.0) % MCV (79.0-92.2) fl MCH (25.7-32.2) pg MCHC (32.2-35.5) g/dl RDW Std Deviation (35.1-43.9) fL Plt Count (163-337) K/mm3 MPV (9.4-12.3) fl Neutrophils % (Manual) (40-60) % Band Neutrophils % (0-10) % Lymphocytes % (Manual) (20-40) % Atypical Lymphs % % Monocytes % (Manual) (2-10) % Eosinophils % (Manual) (0.8-7.0) % Basophils % (Manual) (0.2-1.2) Platelet Estimate Plt Morphology Comment RBC Morph Comment Sodium (136-145) mEq/L Potassium (3.5-5.1) mEq/L Chloride (98-107) mEq/L Carbon Dioxide (21-32) mEq/L Anion Gap (5-15) BUN (7-18) mg/dL Creatinine (0.7-1.3) mg/dL Est Cr Clr Drug Dosing Estimated GFR (MDRD) (>60) mL/min BUN/Creatinine Ratio (14-18) Glucose (83-115) mg/dL Lactic Acid 1.3 (0.4-2.0) mmol/L Calcium (8.5-10.1) mg/dL Total Bilirubin (0.2-1.0) mg/dL AST (15-37) U/L ALT (16-63) U/L Alkaline Phosphatase (46-116) U/L C-Reactive Protein (<1.0) mg/dL Total Protein (6.4-8.2) g/dl Albumin (3.4-5.0) g/dl Globulin gm/dL Albumin/Globulin Ratio (1-2) Urine Color Light yellow (Yellow) Urine Appearance Cloudy H (Clear) Urine pH 6.0 (5.0-8.0) Ur Specific [place] 1.025 (1.005-1.030) Urine Protein 3+ H (Negative) Urine Glucose (UA) Negative (Negative) Urine Ketones Negative (Negative) Urine Occult Blood 3+ H (Negative) Urine Nitrite Negative (Negative) Urine Bilirubin Negative (Negative) Urine Urobilinogen 0.2 (0.2-1.0) Ur Leukocyte Esterase 3+ H (Negative) Urine RBC 0-5 (0-5) /hpf Urine WBC Too numerous to cnt H (0-5) /hpf Urine WBC Clumps Many (NOT SEEN) /hpf Ur Epithelial Cells 0-5 (0-5) /hpf Urine Bacteria Few (FEW) /hpf Urine Mucus Not seen (FEW) /hpf Meds: Medications Generic Name Dose Route Start Last Admin Trade Name Freq PRN Reason Stop Dose Admin Acetaminophen 650 mg 08/24/18 22:09 Tylenol PO Q4H PRN Pain (Mild 1-3)/fever Hydrocodone Bitart/Acetaminophen 1 tab 08/24/18 22:09 [place] 325-5 Mg PO Q4H PRN Pain (moderate 4-6) Finasteride 5 mg 08/26/18 09:00 Proscar PO DAILY [facility] Ceftriaxone Sodium 2 gm/ 100 mls @ 200 mls/hr 08/25/18 20:00 Sodium Chloride IV Q24H [facility] Magnesium Sulfate 4 gm/ Premix 50 mls @ 12.5 mls/hr 08/25/18 07:31 08/25/18 07:54 IV 08/25/18 11:30 12.5 mls/hr ONETIME ONE Administration Heparin Sodium/Dextrose 25,000 units in 500 mls @ 14.2 mls/hr 08/25/18 07:45 08/25/18 08:51 Heparin 25,000 Units In D5w 500 Ml IV 710 units/hr TITRATE [place] 14.2 mls/hr Administration Protocol 710 UNITS/HR Lactated Ringer's 1,000 mls @ 75 mls/hr 08/25/18 07:45 Ringers, Lactated IV ASDIRECTED [place] Meropenem/Sodium Chloride 500 50 mls @ 100 mls/hr 08/25/18 08:00 08/25/18 08: 44 mg/ Premix IV 100 mls/hr Q8H [facility] Administration Vancomycin HCl 1 gm/ 250 mls @ 166.667 mls/hr 08/25/18 08:30 08/25/18 09:14 Vancomycin HCl 250 mg/ Sodium IV 08/25/18 09:59 166.667 mls/hr Chloride ONETIME ONE Administration Insulin Human Lispro 0 unit 08/25/18 07:00 08/25/18 07:53 Humalog SUBCUT 1 unit QIDACANDBED [place] Administration Protocol Ondansetron HCl 4 mg 08/24/18 22:09 Zofran Odt PO Q4H PRN nausea, able to take PO Ondansetron HCl 4 mg 08/24/18 22:09 Zofran IV Q4H PRN Nausea/Vomiting Oxybutynin Chloride 5 mg 08/25/18 09:00 Oxybutynin PO DAILY [facility] Pantoprazole Sodium 40 mg 08/25/18 07:00 08/25/18 07:54 Protonix PO 40 mg DAILY@0700 [facility] Administration Sodium Chloride 10 ml 08/24/18 17:08 08/24/18 17:30 Saline Flush FLUSH 10 ml ASDIRECTED PRN Administration Keep Vein Open Tamsulosin HCl 0.4 mg 08/25/18 09:00 08/25/18 07:59 Flomax PO 0.4 mg DAILY [facility] Administration Vancomycin HCl 0 dose 08/25/18 08:00 Pharmacy To Dose - Vancomycin .XX ASDIRECTED PRN RX TO DOSE [facility] Discontinued Medications Generic Name Dose Route Start Last Admin Trade Name Freq PRN Reason Stop Dose Admin Acetaminophen 975 mg 08/24/18 17:19 08/24/18 17:46 Tylenol PO 08/24/18 17:20 975 mg NOW ONE Administration Ceftriaxone Sodium 2 gm 08/24/18 18:53 08/24/18 19:44 Rocephin IV 08/24/18 18:54 Not Given ONETIME ONE Furosemide 20 mg 08/25/18 09:19 08/25/18 09:36 Lasix IVPUSH 08/25/18 09:20 20 mg NOW ONE Administration Heparin Sodium (Porcine) 5,000 units 08/24/18 22:30 08/25/18 09:21 Heparin Sodium SUBCUT Not Given Q8H [facility] Heparin Sodium (Porcine) 3,550 units 08/25/18 08:30 08/25/18 08:50 Heparin Sodium IVPUSH 08/25/18 08:31 3,550 units .BOLUS ONE Administration Sodium Chloride 500 mls @ 999 mls/hr 08/24/18 17:08 08/24/18 17:30 Normal Saline IV 08/24/18 17:38 999 mls/hr .BOLUS ONE Administration Ceftriaxone Sodium 2 gm/ 100 mls @ 200 mls/hr 08/24/18 19:23 08/24/18 19:38 Sodium Chloride IV 08/24/18 19:52 200 mls/hr ONETIME ONE Administration Sodium Chloride 500 mls @ 999 mls/hr 08/24/18 19:30 08/24/18 19:31 Normal Saline IV 08/24/18 20:00 999 mls/hr .BOLUS ONE Administration Lactated Ringer's Confirm 08/24/18 21:20 08/25/18 00:23 Ringers, Lactated Administered 08/24/18 21:21 Not Given Dose 1,000 mls @ as directed .ROUTE .STK-MED ONE Lactated Ringer's 1,000 mls @ 75 mls/hr 08/24/18 21:30 08/24/18 21:38 Ringers, Lactated IV 75 mls/hr ASDIRECTED [place] Administration Lactated Ringer's 500 mls @ 999 mls/hr 08/25/18 00:59 08/25/18 00:55 Ringers, Lactated IV 08/25/18 01:29 999 mls/hr ONETIME ONE Administration Lactated Ringer's 1,000 mls @ 30 mls/hr 08/25/18 02:15 Ringers, Lactated IV ASDIRECTED [place] Nifedipine 60 mg 08/24/18 22:30 08/25/18 00:19 Procardia PO 60 mg QPM [facility] Administration - Re-Assessments/Exams Free Text/Narrative Re-Assessment/Exam: 08/24/18 19:35. White blood count came back at 18,700, blood culture 1 was drawn with initial lab work, C-reactive protein 22.5. Lactic acid 1.3, creat. 1.4. He was given a 500 mL fluid bolus. He was not able to void initially. Bladder scan was done and his bladder was empty. additional 500 mL fluid bolus was ordered. Urine bag was attached and we did collect urine just a short time ago which is very purulent with the appearance of yellowish-green pus more than clear liquid urine. Microscopic UA still pending at this time. Urine culture has been ordered. Rocephin 2 g IV ordered. Will be admitted for further treatment. Departure - Departure Time of Disposition: 19:25 Disposition: Admitted As Inpatient 65 Condition: Serious Clinical Impression: UTI (urinary tract infection) Qualifiers: Urinary tract infection type: acute pyelonephritis Qualified Code(s): N10 - Acute pyelonephritis - Discharge Information ED Communication - Discussed Case With (1) Discussed Case With (1): Admitting Provider (Dr Carrion, decision to admit at about 19:25.) - My Orders Last 24 Hours: My Active Orders 08/24/18 17:08 Sodium Chloride 0.9% [Saline Flush] 10 ml FLUSH ASDIRECTED PRN Peripheral IV Insertion Adult [OM.PC] Stat 08/24/18 19:55 CULTURE URINE [RM] Stat - Assessment/Plan Last 24 Hours: My Active Orders 08/24/18 17:08 Sodium Chloride 0.9% [Saline Flush] 10 ml FLUSH ASDIRECTED PRN Peripheral IV Insertion Adult [OM.PC] Stat 08/24/18 19:55 CULTURE URINE [RM] Stat
[2018-08-24] MEDS ORDERED: cefTRIAXone 2 GM in Sodium Chloride 0.9% 100 ML IV ONE (19:23)
[2018-08-24] MEDS ORDERED: Lactated Ringers 1,000 ML ONE (21:20)
[2018-08-24] MEDS ORDERED: Lactated Ringers 1,000 ML IV SCH (21:30)
[2018-08-24] MEDS ORDERED: Acetaminophen 325 MG Tab PO PRN (22:09)
[2018-08-24] MEDS ORDERED: Ondansetron 4 MG/2 ML SDV IV PRN (22:09)
[2018-08-24] MEDS ORDERED: Ondansetron 4 MG Tab.DIS PO PRN (22:09)
[2018-08-24] MEDS ORDERED: Acetaminophen/HYDROcodone 325-5 MG Tab PO PRN (22:09)
[2018-08-24] MEDS ORDERED: NIFEdipine 10 MG Cap PO SCH (22:30)
--- NOTE | 2018-08-24 22:34 | PCM.HP ---
H&P History of Present Illness - General Date of Service: 08/24/18 Admit Problem/Dx: Admission Diagnosis/Problem Admission Diagnosis/Problem Pyelonephritis - History of Present Illness Initial Comments - Free Text/Narative: 83-year-old male with known history of pancreatic and bladder cancer was admitted through the emergency room secondary to increasing weakness, burning in his penis, and chills. Patient was getting chemotherapy therapy and radiation until August 02, 2018 when he had his last radiation treatment. Patient states that over the last 9 days, since he stopped his Keflex for a UTI, he's had worsening symptoms. Last night he had chills and then tonight after having a fever of 99.8 he came into the emergency room. In the emergency room he was found to have, C-reactive protein of 22.5, microscopic UA WBCs too numerous to count. - Related Data Allergies/Adverse Reactions: Allergies Allergy/AdvReac Type Severity Reaction Status Date / Time almond Allergy Facial Verified 08/24/18 17:03 Swelling lisinopril Allergy Swollen Verified 08/24/18 17:03 Tongue morphine Allergy Hives Verified 08/24/18 17:03 Home Medications: Home Meds NIFEdipine [Procardia] 60 mg PO QPM 06/07/18 [History] Oxybutynin 1 tab PO DAILY 06/07/18 [History] glipiZIDE [Glucotrol XL] 5 mg PO QAM 06/07/18 [History] Ascorbic Acid [Vitamin C] 1,000 mg PO DAILY 08/03/18 [History] Finasteride 0 mg PO DAILY 08/03/18 [History] Pantoprazole Sodium [Protonix] 40 mg PO DAILY 08/03/18 [History] Tamsulosin HCl [Flomax] 1 dose PO DAILY 08/03/18 [History] Vit A/Vit C/Vit E/Zinc/Copper [Preservision] 1 tab PO DAILY 08/03/18 [History] Past Medical History HEENT History: Reports: Impaired Vision, Macular Degeneration, Other (See Below) Other HEENT History: wears glasses and has upper denture Cardiovascular History: Reports: Heart Murmur, Hypertension Respiratory History: Reports: None Gastrointestinal History: Reports: Hemorrhoids Genitourinary History: Reports: Prostate Disorder, Retention, Urinary, Other ( See Below) Other Genitourinary History: bladder mass Musculoskeletal History: Reports: Osteoarthritis, Osteoporosis Neurological History: Reports: None Psychiatric History: Reports: None Endocrine/Metabolic History: Reports: Diabetes, Type II Hematologic History: Reports: None Immunologic History: Reports: None Oncologic (Cancer) History: Reports: Bladder, Pancreatic Other Oncologic History: 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 Last chemo July 26 and radiation was august 02, 2018 Dermatologic History: Reports: None - Infectious Disease History Infectious Disease History: Reports: Influenza - Past Surgical History HEENT Surgical History: Reports: Cataract Surgery GI Surgical History: Reports: Cholecystectomy, Other (See Below) Other GI Surgeries/Procedures: spleenectomy and partical pancreas removal. last chemo and radiation was august 02. Male Surgical History: Reports: None Social & Family History - Family History Family Medical History: Noncontributory - Tobacco Use Smoking Status *Q: Former Smoker Used Tobacco, but Quit: No Second Hand Smoke Exposure: No - Caffeine Use Caffeine Use: Reports: Coffee Other Caffeine Use: one cup a day of coffee - Recreational Drug Use Recreational Drug Use: No - Living Situation & Occupation Living situation: Reports: Occupation: Retired H&P Review of Systems - Review of Systems: Review Of Systems: ROS reveals no pertinent complaints other than HPI. General: Reports: Fever, Chills HEENT: Reports: No Symptoms Pulmonary: Reports: No Symptoms. Denies: Shortness of Breath, Wheezing Cardiovascular: Reports: No Symptoms. Denies: Chest Pain, Dyspnea on Exertion Gastrointestinal: Reports: No Symptoms. Denies: Abdominal Pain Genitourinary: Reports: Dysuria, Burning, Pain Musculoskeletal: Reports: Back Pain Neurological: Reports: Difficulty Walking, Weakness Exam - Exam Exam: See Below - Vital Signs Vital Signs: Last Vital Signs Temp 100.5 F 08/24/18 17:46 Pulse 109 H 08/24/18 16:59 Resp 27 H 08/24/18 16:59 BP 125/68 08/24/18 16:59 Pulse Ox 94 L 08/24/18 16:59 Weight: 129 lb 4.8 oz - Exam Quality Assessment: No: Supplemental Oxygen General: Alert, Oriented HEENT: Conjunctiva Clear, Mucosa Moist & [place] Neck: Supple, Trachea Midline Lungs: Clear to Auscultation, Normal Respiratory Effort Cardiovascular: Regular Rate, Regular Rhythm GI/Abdominal Exam: Normal Bowel Sounds, Soft, Non-Tender, No Organomegaly, No Distention Extremities: Normal Inspection, Normal Range of Motion, Non-Tender, No Pedal Edema Skin: Warm, Dry, Intact Neuro Extensive - Mental Status: Alert - Patient Data Lab Results Last 24 hrs: Laboratory Results - last 24 hr 08/24/18 08/24/18 08/24/18 Range/Units 17:35 17:40 17:40 WBC 18.74 H (4.23-9.07) K/mm3 RBC 3.55 L (4.63-6.08) M/mm3 Hgb 10.5 L (13.7-17.5) gm/L Hct 31.9 L (40.1-51.0) % MCV 89.9 D (79.0-92.2) fl MCH 29.6 (25.7-32.2) pg MCHC 32.9 (32.2-35.5) g/dl RDW Std Deviation 59.5 H (35.1-43.9) fL Plt Count 235 (163-337) K/mm3 MPV 10.5 (9.4-12.3) fl Neutrophils % (Manual) 82 H (40-60) % Band Neutrophils % 0 (0-10) % Lymphocytes % (Manual) 10 L (20-40) % Atypical Lymphs % 0 % Monocytes % (Manual) 7 (2-10) % Eosinophils % (Manual) 0 L (0.8-7.0) % Basophils % (Manual) 1 (0.2-1.2) Platelet Estimate Adequate Plt Morphology Comment Normal RBC Morph Comment Normal Sodium 131 L (136-145) mEq/L Potassium 4.2 (3.5-5.1) mEq/L Chloride 98 (98-107) mEq/L Carbon Dioxide 24 (21-32) mEq/L Anion Gap 13.2 (5-15) BUN 29 H (7-18) mg/dL Creatinine 1.4 H (0.7-1.3) mg/dL Est Cr Clr Drug Dosing TNP Estimated GFR (MDRD) 48 (>60) mL/min BUN/Creatinine Ratio 20.7 H (14-18) Glucose 153 H (83-115) mg/dL Lactic Acid (0.4-2.0) mmol/L Calcium 8.8 (8.5-10.1) mg/dL Total Bilirubin 1.1 H (0.2-1.0) mg/dL AST 43 H (15-37) U/L ALT 19 (16-63) U/L Alkaline Phosphatase 72 (46-116) U/L C-Reactive Protein 22.5 H* (<1.0) mg/dL Total Protein 6.2 L (6.4-8.2) g/dl Albumin 2.6 L (3.4-5.0) g/dl Globulin 3.6 gm/dL Albumin/Globulin Ratio 0.7 L (1-2) Urine Color (Yellow) Urine Appearance (Clear) Urine pH (5.0-8.0) Ur Specific [place] (1.005-1.030) Urine Protein (Negative) Urine Glucose (UA) (Negative) Urine Ketones (Negative) Urine Occult Blood (Negative) Urine Nitrite (Negative) Urine Bilirubin (Negative) Urine Urobilinogen (0.2-1.0) Ur Leukocyte Esterase (Negative) Urine RBC (0-5) /hpf Urine WBC (0-5) /hpf Urine WBC Clumps (NOT SEEN) /hpf Ur Epithelial Cells (0-5) /hpf Urine Bacteria (FEW) /hpf Urine Mucus (FEW) /hpf 08/24/18 08/24/18 Range/Units 19:36 20:00 WBC (4.23-9.07) K/mm3 RBC (4.63-6.08) M/mm3 Hgb (13.7-17.5) gm/L Hct (40.1-51.0) % MCV (79.0-92.2) fl MCH (25.7-32.2) pg MCHC (32.2-35.5) g/dl RDW Std Deviation (35.1-43.9) fL Plt Count (163-337) K/mm3 MPV (9.4-12.3) fl Neutrophils % (Manual) (40-60) % Band Neutrophils % (0-10) % Lymphocytes % (Manual) (20-40) % Atypical Lymphs % % Monocytes % (Manual) (2-10) % Eosinophils % (Manual) (0.8-7.0) % Basophils % (Manual) (0.2-1.2) Platelet Estimate Plt Morphology Comment RBC Morph Comment Sodium (136-145) mEq/L Potassium (3.5-5.1) mEq/L Chloride (98-107) mEq/L Carbon Dioxide (21-32) mEq/L Anion Gap (5-15) BUN (7-18) mg/dL Creatinine (0.7-1.3) mg/dL Est Cr Clr Drug Dosing Estimated GFR (MDRD) (>60) mL/min BUN/Creatinine Ratio (14-18) Glucose (83-115) mg/dL Lactic Acid 1.3 (0.4-2.0) mmol/L Calcium (8.5-10.1) mg/dL Total Bilirubin (0.2-1.0) mg/dL AST (15-37) U/L ALT (16-63) U/L Alkaline Phosphatase (46-116) U/L C-Reactive Protein (<1.0) mg/dL Total Protein (6.4-8.2) g/dl Albumin (3.4-5.0) g/dl Globulin gm/dL Albumin/Globulin Ratio (1-2) Urine Color Light yellow (Yellow) Urine Appearance Cloudy H (Clear) Urine pH 6.0 (5.0-8.0) Ur Specific [place] 1.025 (1.005-1.030) Urine Protein 3+ H (Negative) Urine Glucose (UA) Negative (Negative) Urine Ketones Negative (Negative) Urine Occult Blood 3+ H (Negative) Urine Nitrite Negative (Negative) Urine Bilirubin Negative (Negative) Urine Urobilinogen 0.2 (0.2-1.0) Ur Leukocyte Esterase 3+ H (Negative) Urine RBC 0-5 (0-5) /hpf Urine WBC Too numerous to cnt H (0-5) /hpf Urine WBC Clumps Many (NOT SEEN) /hpf Ur Epithelial Cells 0-5 (0-5) /hpf Urine Bacteria Few (FEW) /hpf Urine Mucus Not seen (FEW) /hpf Result Diagrams: 08/24/18 17:35 08/24/18 17:40 - Problem List (1) Bladder cancer SNOMED Code(s): 412146300 ICD Code: C67.9 - MALIGNANT NEOPLASM OF BLADDER, UNSPECIFIED Status: Acute Current Visit: Yes (2) Urinary tract infection SNOMED Code(s): 71044116 ICD Code: N39.0 - URINARY TRACT INFECTION, SITE NOT SPECIFIED Status: Acute Current Visit: Yes Qualifiers: Urinary tract infection type: acute pyelonephritis Qualified Code(s): N10 - Acute pyelonephritis (3) Pancreatic cancer SNOMED Code(s): 162884039 ICD Code: C25.9 - MALIGNANT NEOPLASM OF PANCREAS, UNSPECIFIED Status: Acute Current Visit: No Qualifiers: Pancreatic malignancy location: unspecified Qualified Code(s): C25.9 - Malignant neoplasm of pancreas, unspecified Problem List Initiated/Reviewed/Updated: Yes Orders Last 24hrs: Active Orders 24 hr Category Date Time Status Patient Status [ADT] Routine ADT 08/24/18 20:30 Active Oxygen Therapy [RC] PRN Care 08/24/18 22:09 Active Peripheral IV Care [RC] . DIRECTED Care 08/24/18 17:08 Active Up ad [place] [RC] ASDIRECTED Care 08/24/18 22:09 Active VTE/DVT Education [RC] PER UNIT ROUTINE Care 08/24/18 22:09 Active Vital Signs [RC] Q4H Care 08/24/18 22:09 Active OT Evaluation and Treatment [CONS] Routine Cons 08/24/18 22:11 Active PT Evaluation and Treatment [CONS] Routine Cons 08/24/18 22:11 Active Consistent Carbohydrate Diet [DIET] Diet 08/25/18 Breakfast Active Chest 1V Frontal [CR] Stat Exams 08/24/18 19:42 Taken C-REACTIVE PROTEIN [CHEM] AM Lab 08/25/18 05:11 Ordered CBC WITH AUTO DIFF [HEME] AM Lab 08/25/18 05:11 Ordered COMPREHENSIVE METABOLIC PN,CMP [CHEM] AM Lab 08/25/18 05:11 Ordered CULTURE URINE [RM] Stat Lab 08/24/18 19:36 Ordered MAGNESIUM [CHEM] AM Lab 08/25/18 05:11 Ordered Acetaminophen [Tylenol] Med 08/24/18 22:09 Active 650 mg PO Q4H PRN Acetaminophen/HYDROcodone [[place] 325-5 MG] Med 08/24/18 22:09 Pending 1 tab PO Q4H PRN Heparin Sodium Med 08/24/18 22:30 Active 5,000 units SUBCUT Q8H Lactated Ringers [Ringers, Lactated] 1,000 ml Med 08/24/18 21:30 Active IV ASDIRECTED NIFEdipine [Procardia] Med 08/24/18 22:30 Active 60 mg PO QPM Ondansetron [Zofran ODT] Med 08/24/18 22:09 Active 4 mg PO Q4H PRN Ondansetron [Zofran] Med 08/24/18 22:09 Active 4 mg IV Q4H PRN Oxybutynin Med 08/25/18 09:00 Pending 5 mg PO DAILY Pantoprazole [ProTONIX] Med 08/25/18 07:00 Active 40 mg PO DAILY@0700 Sodium Chloride 0.9% [Saline Flush] Med 08/24/18 17:08 Active 10 ml FLUSH ASDIRECTED PRN Tamsulosin [Flomax] Med 08/24/18 21:00 Pending DOSE mg PO DAILY cefTRIAXone [Rocephin] Med 08/25/18 18:30 Ordered 2 gm IVPUSH Q24H Peripheral IV Insertion Adult [OM.PC] Stat Oth 08/24/18 17:08 Ordered Resuscitation Status Routine Resus Stat 08/24/18 22:09 Ordered Medication Orders Acetaminophen (Tylenol) 650 mg PO Q4H PRN PRN Reason: Pain (Mild 1-3)/fever Hydrocodone Bitart/Acetaminophen ([place] 325-5 Mg) 1 tab PO Q4H PRN PRN Reason: Pain (moderate 4-6) Ceftriaxone Sodium (Rocephin) 2 gm IVPUSH Q24H [place] Heparin Sodium (Porcine) (Heparin Sodium) 5,000 units SUBCUT Q8H [facility] Lactated Ringer's (Ringers, Lactated) 1,000 mls @ 75 mls/hr IV ASDIRECTED [place] Last Admin: 08/24/18 21:38 Dose: 75 mls/hr Nifedipine (Procardia) 60 mg PO QPM [facility] Ondansetron HCl (Zofran Odt) 4 mg PO Q4H PRN PRN Reason: nausea, able to take PO Ondansetron HCl (Zofran) 4 mg IV Q4H PRN PRN Reason: Nausea/Vomiting Oxybutynin Chloride (Oxybutynin) 5 mg PO DAILY [facility] Pantoprazole Sodium (Protonix) 40 mg PO DAILY@0700 [facility] Sodium Chloride (Saline Flush) 10 ml FLUSH ASDIRECTED PRN PRN Reason: Keep Vein Open Last Admin: 08/24/18 17:30 Dose: 10 ml Tamsulosin HCl (Flomax) mg PO DAILY [place] Assessment/Plan Comment:: Assessment * 83-year-old male with history of pancreatic and bladder cancer finishing chemotherapy and radiation on August 02 admitted for complicated UTI * Review of old records show that he grew out Klebsiella pneumonia from a urine done on August 03, 2018 pansensitive except to Macrobid * Past medical history diabetes, hypertension Plan * Patient was given Rocephin 2 g in the emergency room. * Continue Rocephin 2 g IV every 24 hours * Blood cultures, urine culture * CBC, CMP, C-reactive protein, lactic acid, magnesium morning * Sliding-scale insulin * PT/OT * CODE STATUS: DO NOT RESUSCITATE /DO NOT INTUBATE. I discussed this personally with the patient. * Prognosis is poor
[2018-08-24] MEDS: Heparin Sodium 5,000 Units/ML Vial SUBCUT SCH (23:59)
[2018-08-25] MEDS ORDERED: Lactated Ringers 500 ML IV ONE (00:59)
[2018-08-25] MEDS ORDERED: Lactated Ringers 1,000 ML IV SCH ×2 (02:15→07:45)
--- NOTE | 2018-08-25 03:04 | PCM.SN ---
- Free Text/Narrative Note: I was called by nursing at 0010 in regards to patient having frequent PVCs and mild chest tightness. Patient was late getting his home dose of Procardia and initially I felt this was part of the reason he was having PVCs. His blood pressure was borderline with a systolic of 104 so patient was given 250 mL of LR bolus before giving his Procardia. At 0019 patient was given Procardia 60 mg and at 0029 I called to confirm it was the XL dose. Patient's home meds were difficult to ascertain secondary to multiple sources and the immediate release dose was put in the chart and confirmed by myself as the immediate release. Patient takes the extended release. At this time I requested patient have every 30 minutes blood pressures and he had a transient blood pressure with a systolic in the 70s and 80s. Patient was given another 500 mL LR bolus. Patient complained of chest tightness 3 out of 10 with shortness of breath. He was placed on 4 L nasal cannula because of oxygen saturations in the mid to upper 80s. At that time an EKG was obtained at 0130 and troponin was drawn at 0140. EKG showed a rate of 115 bpm sinus tachycardia with anterolateral Q waves in V1 through V3. He had T-wave inversions in V3 through V6 and flattening of his T waves in I and aVL. No prior EKGs for comparison available. Troponin returned elevated at 7.9. I arrived at bedside at approximately 0245. Patient states he has minimal chest discomfort and his breathing is better. Blood pressures have increased to the mid 90s systolic with a mean arterial blood pressure near 65. Patient is resting comfortably on 4 L with oxygen saturations at 97%. He has faint crackles in his right lung base otherwise clear. Respiratory rate and effort are minimally increased. I discussed with the patient that it appears he had a non-STEMI and it was likely caused by his significant underlying illness which includes pyelonephritis and sepsis. It also appears that the [place] started prior to Procardia, but the Procardia clearly caused a worsening of hypotension and tachycardia. At this time patient is in agreement that we'll continue treating his underlying infection and monitoring his cardiac status. He understands he is at risk for additional complications. I will hold off on nitroglycerin or Lasix secondary to his marginal blood pressure and continue to monitor.
[2018-08-25 07:25] LABS: HEMOGLOBIN A1C 7.8 % (4.50-6.20)
--- NOTE | 2018-08-25 07:26 | CR ---
Chest: Portable view of the chest was obtained. Comparison: Prior chest x-ray of 02/25/18. Heart is mildly enlarged. Slightly prominent superior mediastinum is seen which appears to be stable. Tortuous thoracic aorta is seen. Lung markings are slightly increased most likely due to mild chronic pulmonary vascular congestion. Infusion port is seen from the left side. Bony structures are osteopenic. Impression: 1. Findings as noted above believed to be stable from prior chest x-ray. Nothing acute is appreciated. Diagnostic code #2
[2018-08-25] MEDS ORDERED: Magnesium Sulfate/Water 4 GM in Premix Bag 1 BAG IV ONE (07:31)
[2018-08-25] MEDS ORDERED: Heparin Sodium 5,000 Units/ML Vial IVPUSH ONE ×2 (07:36→08:30)
[2018-08-25] MEDS ORDERED: Heparin Sodium/D5W 25,000 UNITS/500 ML BAG IV SCH (07:45)
[2018-08-25] MEDS: Insulin Lispro 100 Units/ML 3 ML Vial SUBCUT SCH ×4 (07:53→22:41)
[2018-08-25] MEDS: Pantoprazole 40 MG Tab.CR PO SCH (07:54)
[2018-08-25] MEDS: Tamsulosin 0.4 MG Cap.ER PO SCH (07:59)
[2018-08-25] MEDS ORDERED: Meropenem 1 GM SDV IVPUSH SCH (08:00)
[2018-08-25] MEDS ORDERED: Vancomycin 1 GM, Vancomycin 250 MG in Sodium Chloride 0.9% 250 ML IV ONE (08:30)
--- NOTE | 2018-08-25 08:35 | PCM.PN ---
- General Info Date of Service: 08/25/18 Admission Dx/Problem (Free Text): Admission Diagnosis/Problem Admission Diagnosis/Problem Pyelonephritis Subjective Update: Patient is resting comfortably after a difficult night. Please see previous note for details. Patient states that his shortness of breath is much improved. He is no longer having chest pain. We started heparin drip for his non-STEMI. - Review of Systems General: Reports: Fatigue HEENT: Reports: No Symptoms Pulmonary: Reports: Shortness of Breath Cardiovascular: Denies: Chest Pain Gastrointestinal: Reports: No Symptoms Genitourinary: Reports: No Symptoms - Patient Data Vitals - Most Recent: Last Vital Signs Temp 97.6 F 08/25/18 08:00 Pulse 98 08/25/18 06:45 Resp 18 08/25/18 08:00 BP 96/60 08/25/18 08:00 Pulse Ox 95 08/25/18 08:00 Weight - Most Recent: 130 lb 11.2 oz I&O - Last 24 Hours: Intake & Output 08/24/18 08/25/18 08/25/18 22:59 06:59 14:59 Intake Total 1152 Balance 1152 Lab Results Last 24 Hours: Laboratory Results - last 24 hr 08/24/18 08/24/18 08/24/18 Range/Units 17:35 17:40 17:40 WBC 18.74 H (4.23-9.07) K/mm3 RBC 3.55 L (4.63-6.08) M/mm3 Hgb 10.5 L (13.7-17.5) gm/L Hct 31.9 L (40.1-51.0) % MCV 89.9 D (79.0-92.2) fl MCH 29.6 (25.7-32.2) pg MCHC 32.9 (32.2-35.5) g/dl RDW Std Deviation 59.5 H (35.1-43.9) fL Plt Count 235 (163-337) K/mm3 MPV 10.5 (9.4-12.3) fl Neut % (Auto) (34.0-67.9) % Lymph % (Auto) (21.8-53.1) % [place] % (Auto) (5.3-12.2) % Eos % (Auto) (0.8-7.0) Baso % (Auto) (0.1-1.2) % Neut # (Auto) (1.78-5.38) K/mm3 Lymph # (Auto) (1.32-3.57) K/mm3 Runnels # (Auto) (0.30-0.82) K/mm3 Eos # (Auto) (0.04-0.54) K/mm3 Baso # (Auto) (0.01-0.08) K/mm3 Neutrophils % (Manual) 82 H (40-60) % Band Neutrophils % 0 (0-10) % Lymphocytes % (Manual) 10 L (20-40) % Atypical Lymphs % 0 % Monocytes % (Manual) 7 (2-10) % Eosinophils % (Manual) 0 L (0.8-7.0) % Basophils % (Manual) 1 (0.2-1.2) Manual Slide Review Platelet Estimate Adequate Plt Morphology Comment Normal RBC Morph Comment Normal Sodium 131 L (136-145) mEq/L Potassium 4.2 (3.5-5.1) mEq/L Chloride 98 (98-107) mEq/L Carbon Dioxide 24 (21-32) mEq/L Anion Gap 13.2 (5-15) BUN 29 H (7-18) mg/dL Creatinine 1.4 H (0.7-1.3) mg/dL Est Cr Clr Drug Dosing TNP Estimated GFR (MDRD) 48 (>60) mL/min BUN/Creatinine Ratio 20.7 H (14-18) Glucose 153 H (83-115) mg/dL POC Glucose (83-110) mg/dL Hemoglobin A1c (4.50-6.20) % Lactic Acid (0.4-2.0) mmol/L Calcium 8.8 (8.5-10.1) mg/dL Magnesium (1.8-2.4) mg/dl Total Bilirubin 1.1 H (0.2-1.0) mg/dL AST 43 H (15-37) U/L ALT 19 (16-63) U/L Alkaline Phosphatase 72 (46-116) U/L Creatine Kinase (39-308) U/L CK-MB (CK-2) (0-3.6) ng/ml Troponin I (0.00-0.056) ng/mL C-Reactive Protein 22.5 H* (<1.0) mg/dL Total Protein 6.2 L (6.4-8.2) g/dl Albumin 2.6 L (3.4-5.0) g/dl Globulin 3.6 gm/dL Albumin/Globulin Ratio 0.7 L (1-2) Triglycerides (<150) mg/dL Cholesterol (<200) mg/dL LDL Cholesterol Direct (<100) mg/dL HDL Cholesterol (40-59) mg/dL TSH 3rd Generation (0.358-3.74) uIU/mL Urine Color (Yellow) Urine Appearance (Clear) Urine pH (5.0-8.0) Ur Specific [place] (1.005-1.030) Urine Protein (Negative) Urine Glucose (UA) (Negative) Urine Ketones (Negative) Urine Occult Blood (Negative) Urine Nitrite (Negative) Urine Bilirubin (Negative) Urine Urobilinogen (0.2-1.0) Ur Leukocyte Esterase (Negative) Urine RBC (0-5) /hpf Urine WBC (0-5) /hpf Urine WBC Clumps (NOT SEEN) /hpf Ur Epithelial Cells (0-5) /hpf Urine Bacteria (FEW) /hpf Urine Mucus (FEW) /hpf 08/24/18 08/24/18 08/25/18 Range/Units 19:36 20:00 01:40 WBC (4.23-9.07) K/mm3 RBC (4.63-6.08) M/mm3 Hgb (13.7-17.5) gm/L Hct (40.1-51.0) % MCV (79.0-92.2) fl MCH (25.7-32.2) pg MCHC (32.2-35.5) g/dl RDW Std Deviation (35.1-43.9) fL Plt Count (163-337) K/mm3 MPV (9.4-12.3) fl Neut % (Auto) (34.0-67.9) % Lymph % (Auto) (21.8-53.1) % Runnels % (Auto) (5.3-12.2) % Eos % (Auto) (0.8-7.0) Baso % (Auto) (0.1-1.2) % Neut # (Auto) (1.78-5.38) K/mm3 Lymph # (Auto) (1.32-3.57) K/mm3 R[place]els # (Auto) (0.30-0.82) K/mm3 Eos # (Auto) (0.04-0.54) K/mm3 Baso # (Auto) (0.01-0.08) K/mm3 Neutrophils % (Manual) (40-60) % Band Neutrophils % (0-10) % Lymphocytes % (Manual) (20-40) % Atypical Lymphs % % Monocytes % (Manual) (2-10) % Eosinophils % (Manual) (0.8-7.0) % Basophils % (Manual) (0.2-1.2) Manual Slide Review Platelet Estimate Plt Morphology Comment RBC Morph Comment Sodium (136-145) mEq/L Potassium (3.5-5.1) mEq/L Chloride (98-107) mEq/L Carbon Dioxide (21-32) mEq/L Anion Gap (5-15) BUN (7-18) mg/dL Creatinine (0.7-1.3) mg/dL Est Cr Clr Drug Dosing Estimated GFR (MDRD) (>60) mL/min BUN/Creatinine Ratio (14-18) Glucose (83-115) mg/dL POC Glucose (83-110) mg/dL Hemoglobin A1c (4.50-6.20) % Lactic Acid 1.3 (0.4-2.0) mmol/L Calcium (8.5-10.1) mg/dL Magnesium (1.8-2.4) mg/dl Total Bilirubin (0.2-1.0) mg/dL AST (15-37) U/L ALT (16-63) U/L Alkaline Phosphatase (46-116) U/L Creatine Kinase 233 (39-308) U/L CK-MB (CK-2) 12.8 H (0-3.6) ng/ml Troponin I 7.961 H* (0.00-0.056) ng/mL C-Reactive Protein (<1.0) mg/dL Total Protein (6.4-8.2) g/dl Albumin (3.4-5.0) g/dl Globulin gm/dL Albumin/Globulin Ratio (1-2) Triglycerides (<150) mg/dL Cholesterol (<200) mg/dL LDL Cholesterol Direct (<100) mg/dL HDL Cholesterol (40-59) mg/dL TSH 3rd Generation (0.358-3.74) uIU/mL Urine Color Light yellow (Yellow) Urine Appearance Cloudy H (Clear) Urine pH 6.0 (5.0-8.0) Ur Specific [place] 1.025 (1.005-1.030) Urine Protein 3+ H (Negative) Urine Glucose (UA) Negative (Negative) Urine Ketones Negative (Negative) Urine Occult Blood 3+ H (Negative) Urine Nitrite Negative (Negative) Urine Bilirubin Negative (Negative) Urine Urobilinogen 0.2 (0.2-1.0) Ur Leukocyte Esterase 3+ H (Negative) Urine RBC 0-5 (0-5) /hpf Urine WBC Too numerous to cnt H (0-5) /hpf Urine WBC Clumps Many (NOT SEEN) /hpf Ur Epithelial Cells 0-5 (0-5) /hpf Urine Bacteria Few (FEW) /hpf Urine Mucus Not seen (FEW) /hpf 08/25/18 08/25/18 08/25/18 Range/Units 06:00 06:00 06:00 WBC 18.38 H (4.23-9.07) K/mm3 RBC 3.37 L (4.63-6.08) M/mm3 Hgb 10.0 L (13.7-17.5) gm/L Hct 30.1 L (40.1-51.0) % MCV 89.3 (79.0-92.2) fl MCH 29.7 (25.7-32.2) pg MCHC 33.2 (32.2-35.5) g/dl RDW Std Deviation 58.0 H (35.1-43.9) fL Plt Count 202 (163-337) K/mm3 MPV 10.5 (9.4-12.3) fl Neut % (Auto) 83.8 H (34.0-67.9) % Lymph % (Auto) 5.5 L (21.8-53.1) % Runnels % (Auto) 9.5 (5.3-12.2) % Eos % (Auto) 0.1 L (0.8-7.0) Baso % (Auto) 0.2 (0.1-1.2) % Neut # (Auto) 15.41 H (1.78-5.38) K/mm3 Lymph # (Auto) 1.02 L (1.32-3.57) K/mm3 Runnels # (Auto) 1.74 H (0.30-0.82) K/mm3 Eos # (Auto) 0.01 L (0.04-0.54) K/mm3 Baso # (Auto) 0.03 (0.01-0.08) K/mm3 Neutrophils % (Manual) (40-60) % Band Neutrophils % (0-10) % Lymphocytes % (Manual) (20-40) % Atypical Lymphs % % Monocytes % (Manual) (2-10) % Eosinophils % (Manual) (0.8-7.0) % Basophils % (Manual) (0.2-1.2) Manual Slide Review Abnormal smear Platelet Estimate Plt Morphology Comment RBC Morph Comment Sodium 132 L (136-145) mEq/L Potassium 4.2 (3.5-5.1) mEq/L Chloride 99 (98-107) mEq/L Carbon Dioxide 20 L (21-32) mEq/L Anion Gap 17.2 H (5-15) BUN 33 H (7-18) mg/dL Creatinine 1.4 H (0.7-1.3) mg/dL Est Cr Clr Drug Dosing 32.94 Estimated GFR (MDRD) 48 (>60) mL/min BUN/Creatinine Ratio 23.6 H (14-18) Glucose 177 H (83-115) mg/dL POC Glucose (83-110) mg/dL Hemoglobin A1c (4.50-6.20) % Lactic Acid 1.4 (0.4-2.0) mmol/L Calcium 8.4 L (8.5-10.1) mg/dL Magnesium 1.3 L (1.8-2.4) mg/dl Total Bilirubin 0.9 (0.2-1.0) mg/dL AST 46 H (15-37) U/L ALT 18 (16-63) U/L Alkaline Phosphatase 69 (46-116) U/L Creatine Kinase (39-308) U/L CK-MB (CK-2) (0-3.6) ng/ml Troponin I (0.00-0.056) ng/mL C-Reactive Protein 25.2 H* (<1.0) mg/dL Total Protein 5.8 L (6.4-8.2) g/dl Albumin 2.2 L (3.4-5.0) g/dl Globulin 3.6 gm/dL Albumin/Globulin Ratio 0.6 L (1-2) Triglycerides 70 (<150) mg/dL Cholesterol 112 (<200) mg/dL LDL Cholesterol Direct 61 (<100) mg/dL HDL Cholesterol 42.0 (40-59) mg/dL TSH 3rd Generation 1.132 (0.358-3.74) uIU/mL Urine Color (Yellow) Urine Appearance (Clear) Urine pH (5.0-8.0) Ur Specific [place] (1.005-1.030) Urine Protein (Negative) Urine Glucose (UA) (Negative) Urine Ketones (Negative) Urine Occult Blood (Negative) Urine Nitrite (Negative) Urine Bilirubin (Negative) Urine Urobilinogen (0.2-1.0) Ur Leukocyte Esterase (Negative) Urine RBC (0-5) /hpf Urine WBC (0-5) /hpf Urine WBC Clumps (NOT SEEN) /hpf Ur Epithelial Cells (0-5) /hpf Urine Bacteria (FEW) /hpf Urine Mucus (FEW) /hpf 08/25/18 08/25/18 Range/Units 06:00 07:44 WBC (4.23-9.07) K/mm3 RBC (4.63-6.08) M/mm3 Hgb (13.7-17.5) gm/L Hct (40.1-51.0) % MCV (79.0-92.2) fl MCH (25.7-32.2) pg MCHC (32.2-35.5) g/dl RDW Std Deviation (35.1-43.9) fL Plt Count (163-337) K/mm3 MPV (9.4-12.3) fl Neut % (Auto) (34.0-67.9) % Lymph % (Auto) (21.8-53.1) % Runnels % (Auto) (5.3-12.2) % Eos % (Auto) (0.8-7.0) Baso % (Auto) (0.1-1.2) % Neut # (Auto) (1.78-5.38) K/mm3 Lymph # (Auto) (1.32-3.57) K/mm3 R[place]els # (Auto) (0.30-0.82) K/mm3 Eos # (Auto) (0.04-0.54) K/mm3 Baso # (Auto) (0.01-0.08) K/mm3 Neutrophils % (Manual) (40-60) % Band Neutrophils % (0-10) % Lymphocytes % (Manual) (20-40) % Atypical Lymphs % % Monocytes % (Manual) (2-10) % Eosinophils % (Manual) (0.8-7.0) % Basophils % (Manual) (0.2-1.2) Manual Slide Review Platelet Estimate Plt Morphology Comment RBC Morph Comment Sodium (136-145) mEq/L Potassium (3.5-5.1) mEq/L Chloride (98-107) mEq/L Carbon Dioxide (21-32) mEq/L Anion Gap (5-15) BUN (7-18) mg/dL Creatinine (0.7-1.3) mg/dL Est Cr Clr Drug Dosing Estimated GFR (MDRD) (>60) mL/min BUN/Creatinine Ratio (14-18) Glucose (83-115) mg/dL POC Glucose 165 H (83-110) mg/dL Hemoglobin A1c 7.80 H (4.50-6.20) % Lactic Acid (0.4-2.0) mmol/L Calcium (8.5-10.1) mg/dL Magnesium (1.8-2.4) mg/dl Total Bilirubin (0.2-1.0) mg/dL AST (15-37) U/L ALT (16-63) U/L Alkaline Phosphatase (46-116) U/L Creatine Kinase (39-308) U/L CK-MB (CK-2) (0-3.6) ng/ml Troponin I (0.00-0.056) ng/mL C-Reactive Protein (<1.0) mg/dL Total Protein (6.4-8.2) g/dl Albumin (3.4-5.0) g/dl Globulin gm/dL Albumin/Globulin Ratio (1-2) Triglycerides (<150) mg/dL Cholesterol (<200) mg/dL LDL Cholesterol Direct (<100) mg/dL HDL Cholesterol (40-59) mg/dL TSH 3rd Generation (0.358-3.74) uIU/mL Urine Color (Yellow) Urine Appearance (Clear) Urine pH (5.0-8.0) Ur Specific [place] (1.005-1.030) Urine Protein (Negative) Urine Glucose (UA) (Negative) Urine Ketones (Negative) Urine Occult Blood (Negative) Urine Nitrite (Negative) Urine Bilirubin (Negative) Urine Urobilinogen (0.2-1.0) Ur Leukocyte Esterase (Negative) Urine RBC (0-5) /hpf Urine WBC (0-5) /hpf Urine WBC Clumps (NOT SEEN) /hpf Ur Epithelial Cells (0-5) /hpf Urine Bacteria (FEW) /hpf Urine Mucus (FEW) /hpf Med Orders - Current: Current Medications Acetaminophen (Tylenol) 650 mg PO Q4H PRN PRN Reason: Pain (Mild 1-3)/fever Hydrocodone Bitart/Acetaminophen ([place] 325-5 Mg) 1 tab PO Q4H PRN PRN Reason: Pain (moderate 4-6) Ceftriaxone Sodium 2 gm/ (Sodium Chloride) 100 mls @ 200 mls/hr IV Q24H [facility] Lactated Ringer's (Ringers, Lactated) 1,000 mls @ 30 mls/hr IV ASDIRECTED [facility] Magnesium Sulfate 4 gm/ Premix 50 mls @ 12.5 mls/hr IV ONETIME ONE Stop: 08/25/18 11:30 Last Admin: 08/25/18 07:54 Dose: 12.5 mls/hr Heparin Sodium/Dextrose (Heparin 25,000 Units In D5w 500 Ml) 25,000 units in 500 mls @ 14.2 mls/hr IV TITRATE [facility]; Protocol Lactated Ringer's (Ringers, Lactated) 1,000 mls @ 75 mls/hr IV ASDIRECTED [facility] Meropenem/Sodium Chloride 500 (mg/ Premix) 50 mls @ 100 mls/hr IV Q8H [facility] Vancomycin HCl 1 gm/Vancomycin HCl 250 mg/ Sodium Chloride 250 mls @ 166.667 mls/hr IV ONETIME ONE Stop: 08/25/18 09:59 Insulin Human Lispro (Humalog) 0 unit SUBCUT QIDACANDBED [place]; Protocol Last Admin: 08/25/18 07:53 Dose: 1 unit Ondansetron HCl (Zofran Odt) 4 mg PO Q4H PRN PRN Reason: nausea, able to take PO Ondansetron HCl (Zofran) 4 mg IV Q4H PRN PRN Reason: Nausea/Vomiting Oxybutynin Chloride (Oxybutynin) 5 mg PO DAILY [facility] Pantoprazole Sodium (Protonix) 40 mg PO DAILY@0700 [facility] Last Admin: 08/25/18 07:54 Dose: 40 mg Sodium Chloride (Saline Flush) 10 ml FLUSH ASDIRECTED PRN PRN Reason: Keep Vein Open Last Admin: 08/24/18 17:30 Dose: 10 ml Tamsulosin HCl (Flomax) 0.4 mg PO DAILY [facility] Last Admin: 08/25/18 07:59 Dose: 0.4 mg Vancomycin HCl (Pharmacy To Dose - Vancomycin) 0 dose .XX ASDIRECTED PRN PRN Reason: RX TO DOSE VANCO Discontinued Medications Acetaminophen (Tylenol) 975 mg PO NOW ONE Stop: 08/24/18 17:20 Last Admin: 08/24/18 17:46 Dose: 975 mg Ceftriaxone Sodium (Rocephin) 2 gm IV ONETIME ONE Stop: 08/24/18 18:54 Last Admin: 08/24/18 19:44 Dose: Not Given Heparin Sodium (Porcine) (Heparin Sodium) 5,000 units SUBCUT Q8H [facility] Last Admin: 08/24/18 23:59 Dose: 5,000 units Heparin Sodium (Porcine) (Heparin Sodium) 3,550 units IVPUSH .BOLUS ONE Stop: 08/25/18 08:31 Sodium Chloride (Normal Saline) 500 mls @ 999 mls/hr IV .BOLUS ONE Stop: 08/24/18 17:38 Last Admin: 08/24/18 17:30 Dose: 999 mls/hr Ceftriaxone Sodium 2 gm/ (Sodium Chloride) 100 mls @ 200 mls/hr IV ONETIME ONE Stop: 08/24/18 19:52 Last Admin: 08/24/18 19:38 Dose: 200 mls/hr Sodium Chloride (Normal Saline) 500 mls @ 999 mls/hr IV .BOLUS ONE Stop: 08/24/18 20:00 Last Admin: 08/24/18 19:31 Dose: 999 mls/hr Lactated Ringer's (Ringers, Lactated) Confirm Administered Dose 1,000 mls @ as directed .ROUTE .STK-MED ONE Stop: 08/24/18 21:21 Last Admin: 08/25/18 00:23 Dose: Not Given Lactated Ringer's (Ringers, Lactated) 1,000 mls @ 75 mls/hr IV ASDIRECTED [facility] Last Admin: 08/24/18 21:38 Dose: 75 mls/hr Lactated Ringer's (Ringers, Lactated) 500 mls @ 999 mls/hr IV ONETIME ONE Stop: 08/25/18 01:29 Last Admin: 08/25/18 00:55 Dose: 999 mls/hr Nifedipine (Procardia) 60 mg PO QPM [facility] Last Admin: 08/25/18 00:19 Dose: 60 mg - Exam Quality Assessment: Supplemental Oxygen General: Alert HEENT: Pupils Equal Neck: Supple Lungs: Normal Respiratory Effort, Rales (Right lower lobe) Cardiovascular: Regular Rate, Regular Rhythm Extremities: Normal Inspection, Normal Range of Motion, Non-Tender, No Pedal Edema Skin: Warm, Dry, Intact Neurological: No New Focal Deficit Psy/Mental Status: Alert - Problem List & Annotations (1) Bladder cancer SNOMED Code(s): 545481300 Code(s): C67.9 - MALIGNANT NEOPLASM OF BLADDER, UNSPECIFIED Status: Acute Current Visit: Yes (2) Urinary tract infection SNOMED Code(s): 64168760 Code(s): N39.0 - URINARY TRACT INFECTION, SITE NOT SPECIFIED Status: Acute Current Visit: Yes Qualifiers: Urinary tract infection type: acute pyelonephritis Qualified Code(s): N10 - Acute pyelonephritis (3) Pancreatic cancer SNOMED Code(s): 763386501 Code(s): C25.9 - MALIGNANT NEOPLASM OF PANCREAS, UNSPECIFIED Status: Acute Current Visit: No Qualifiers: Pancreatic malignancy location: unspecified Qualified Code(s): C25.9 - Malignant neoplasm of pancreas, unspecified (4) Sepsis SNOMED Code(s): 29211844 Code(s): A41.9 - SEPSIS, UNSPECIFIED ORGANISM Status: Acute Current Visit : Yes (5) Non-STEMI (non-ST elevated myocardial infarction) SNOMED Code(s): 60760079 Code(s): I21.4 - NON-ST ELEVATION (NSTEMI) MYOCARDIAL INFARCTION Status: Acute Current Visit: Yes - Problem List Review Problem List Initiated/Reviewed/Updated: Yes - My Orders Last 24 Hours: My Active Orders 08/24/18 22:09 Oxygen Therapy [RC] PRN Up ad [place]ita [RC] ASDIRECTED VTE/DVT Education [RC] BID Vital Signs [RC] Q4HR Acetaminophen [Tylenol] 650 mg PO Q4H PRN Acetaminophen/HYDROcodone [[place] 325-5 MG] 1 tab PO Q4H PRN Ondansetron [Zofran ODT] 4 mg PO Q4H PRN Ondansetron [Zofran] 4 mg IV Q4H PRN Resuscitation Status Routine 08/24/18 22:11 OT Evaluation and Treatment [CONS] Routine PT Evaluation and Treatment [CONS] Routine 08/24/18 22:39 Blood Glucose Check, Bedside [RC] QIDACANDBED 08/25/18 01:20 EKG 12 Lead [EK] Routine 08/25/18 02:11 EKG Documentation Completion [RC] ASDIRECTED 08/25/18 02:15 Lactated Ringers [Ringers, Lactated] 1,000 ml IV ASDIRECTED 08/25/18 03:00 EKG 12 Lead [EK] Routine 08/25/18 06:00 PTT,PARTIAL THROMBOPLSTIN TIME [COAG] Routine 08/25/18 06:56 Admission Status [Patient Status] [ADT] Routine 08/25/18 07:00 Insulin Lispro [HumaLOG] See Protocol SUBCUT QIDACANDBED Pantoprazole [ProTONIX] 40 mg PO DAILY@0700 08/25/18 07:31 Magnesium Sulfate/Water [Magnesium Sulfate in Water Premix] 4 gm Premix Bag 1 bag IV ONETIME 08/25/18 07:45 Heparin Sodium/D5W [Heparin 25,000 Units in D5W 500 ML] 25,000 units in 500 ml IV TITRATE Lactated Ringers [Ringers, Lactated] 1,000 ml IV ASDIRECTED 08/25/18 08:00 Meropenem Premix [Meropenem] 500 mg Premix Bag 1 bag IV Q8H Pharmacy to Dose - Vancomycin 0 dose .XX ASDIRECTED PRN 08/25/18 08:30 Vancomycin 1 gm Vancomycin 250 mg Sodium Chloride 0.9% [Normal Saline] 250 ml IV ONETIME 08/25/18 09:00 Oxybutynin 5 mg PO DAILY Tamsulosin [Flomax] 0.4 mg PO DAILY 08/25/18 20:00 cefTRIAXone [Rocephin] 2 gm Sodium Chloride 0.9% [Normal Saline] 100 ml IV Q24H 08/25/18 Breakfast Consistent Carbohydrate Diet [DIET] - Plan Plan:: Assessment * 83-year-old male with history of pancreatic and bladder cancer finishing chemotherapy and radiation on August 02 admitted for complicated UTI * Review of old records show that he grew out Klebsiella pneumonia from a urine done on August 03, 2018 pansensitive except to Macrobid. * Current urine culture is positive for gram-negative rods * non-STEMI * Pulmonary edema - proBNP 24,000 * Past medical history diabetes, hypertension * chest x-ray with acute on chronic pulmonary congestion Plan * Switch antibiotics from Rocephin to meropenem and vancomycin because of worsening C-reactive protein and no change in CBC * Lasix 20 mg IV every 8 hours * Heparin drip * Blood cultures, urine culture * CBC, CMP, C-reactive protein, lactic acid, magnesium morning * Sliding-scale insulin * PT/OT * CODE STATUS: DO NOT RESUSCITATE /DO NOT INTUBATE. I discussed this personally with the patient. * Prognosis is poor * I discussed the patient and his the gravity of his situation. I offered transfer to [place] for higher level of care versus continuing treatment here. Patient currently is doing better, blood pressures have come up, pulse has decreased, and he is resting comfortably.
[2018-08-25] MEDS: Meropenem Premix 500 MG in Premix Bag 1 BAG IV SCH ×3 (08:44→23:14)
[2018-08-25] MEDS ORDERED: Furosemide 20 MG/2 ML VIAL IVPUSH ONE (09:19)
[2018-08-25] MEDS: Heparin Sodium 5,000 Units/ML Vial SUBCUT SCH (09:21)
[2018-08-25] MEDS ORDERED: Furosemide 40 MG/4 ML VIAL IVPUSH ONE (14:33)
--- NOTE | 2018-08-25 16:46 | CR ---
Chest: Portable view of the chest was obtained. Comparison: Prior chest x-ray of 08/24/18. Lung markings are equivocally increased from prior study possibly due to mild acute superimposed upon chronic pulmonary vascular congestion. Heart size is mildly enlarged. Infusion port is seen entering from the left side. Bony structures are grossly intact. Possible small left-sided pleural effusion is noted. Impression: 1. Findings suspicious for mild acute on chronic pulmonary vascular congestion. 2. Possible small left-sided pleural effusion. 3. Other nonacute findings as noted above. Diagnostic code #3
[2018-08-25] MEDS ORDERED: cefTRIAXone 2 GM Vial IVPUSH SCH (18:30)
[2018-08-25] MEDS ORDERED: cefTRIAXone 2 GM in Sodium Chloride 0.9% 100 ML IV SCH (20:00)
[2018-08-26] MEDS ORDERED: Furosemide 20 MG/2 ML VIAL IVPUSH ONE (05:00)
[2018-08-26] MEDS: Insulin Lispro 100 Units/ML 3 ML Vial SUBCUT SCH ×4 (06:57→21:08)
[2018-08-26] MEDS: Pantoprazole 40 MG Tab.CR PO SCH (06:57)
[2018-08-26] MEDS: Tamsulosin 0.4 MG Cap.ER PO SCH (08:53)
[2018-08-26] MEDS: Finasteride 5 MG Tab PO SCH (08:53)
[2018-08-26] MEDS: Meropenem Premix 500 MG in Premix Bag 1 BAG IV SCH (08:53)
[2018-08-26] MEDS ORDERED: Oxybutynin 5 MG Tab PO SCH (09:00)
--- NOTE | 2018-08-26 12:45 | PCM.PN ---
- General Info Date of Service: 08/26/18 Admission Dx/Problem (Free Text): Admission Diagnosis/Problem Admission Diagnosis/Problem Pyelonephritis Subjective Update: August 25, 2018 Patient is resting comfortably after a difficult night. Please see previous note for details. Patient states that his shortness of breath is much improved. He is no longer having chest pain. We started heparin drip for his non-STEMI. August 26, 2018 Patient continues to wean down on his oxygen. He is currently on only 4 L nasal cannula. He continues to diurese, but a total of 9 pound weight gain since admission. He had a good breakfast this morning and states he is feeling better. - Review of Systems General: Reports: Weakness, Fatigue HEENT: Reports: No Symptoms Pulmonary: Reports: Shortness of Breath Cardiovascular: Reports: No Symptoms. Denies: Chest Pain Gastrointestinal: Reports: No Symptoms - Patient Data Vitals - Most Recent: Last Vital Signs Temp 97.8 F 08/26/18 12:00 Pulse 86 08/26/18 11:37 Resp 18 08/26/18 08:00 BP 108/65 08/26/18 11:37 Pulse Ox 98 08/26/18 12:00 Weight - Most Recent: 135 lb 1.6 oz I&O - Last 24 Hours: Intake & Output 08/25/18 08/26/18 08/26/18 22:59 06:59 14:59 Intake Total 1588 392 300 Output Total 75 Balance 1588 392 225 Lab Results Last 24 Hours: Laboratory Results - last 24 hr 08/25/18 08/25/18 08/25/18 Range/Units 11:58 16:27 16:27 WBC (4.23-9.07) K/mm3 RBC (4.63-6.08) M/mm3 Hgb (13.7-17.5) gm/L Hct (40.1-51.0) % MCV (79.0-92.2) fl MCH (25.7-32.2) pg MCHC (32.2-35.5) g/dl RDW Std Deviation (35.1-43.9) fL Plt Count (163-337) K/mm3 MPV (9.4-12.3) fl Neut % (Auto) (34.0-67.9) % Lymph % (Auto) (21.8-53.1) % [place] % (Auto) (5.3-12.2) % Eos % (Auto) (0.8-7.0) Baso % (Auto) (0.1-1.2) % Neut # (Auto) (1.78-5.38) K/mm3 Lymph # (Auto) (1.32-3.57) K/mm3 [place] # (Auto) (0.30-0.82) K/mm3 Eos # (Auto) (0.04-0.54) K/mm3 Baso # (Auto) (0.01-0.08) K/mm3 Manual Slide Review APTT 97 H (24-31) SECONDS Puncture Site ABG pH (7.35-7.45) ABG pCO2 (35.0-45.0) mmHg ABG pO2 (80.0-100.0) mmHg ABG HCO3 (22.0-26.0) meq/L ABG O2 Saturation (96.0-97.0) % ABG Base Excess (-2-2.0) Rafael Test A-a Gradient mmHg O2 Delivery Device Oxygen Flow Rate FiO2 (21.00-100.00) % Sodium 132 L (136-145) mEq/L Potassium 3.7 (3.5-5.1) mEq/L Chloride 99 (98-107) mEq/L Carbon Dioxide 23 (21-32) mEq/L Anion Gap 13.7 (5-15) BUN 35 H (7-18) mg/dL Creatinine 1.4 H (0.7-1.3) mg/dL Est Cr Clr Drug Dosing 32.94 mL/min Estimated GFR (MDRD) 48 (>60) mL/min BUN/Creatinine Ratio 25.0 H (14-18) Glucose 188 H (83-115) mg/dL POC Glucose (83-110) mg/dL Calcium 8.1 L (8.5-10.1) mg/dL Magnesium 2.4 (1.8-2.4) mg/dl Total Bilirubin (0.2-1.0) mg/dL AST (15-37) U/L ALT (16-63) U/L Alkaline Phosphatase (46-116) U/L C-Reactive Protein (<1.0) mg/dL NT-Pro-B Natriuret Pep 12069 H (0-450) pg/mL Total Protein (6.4-8.2) g/dl Albumin (3.4-5.0) g/dl Globulin gm/dL Albumin/Globulin Ratio (1-2) 08/25/18 08/25/18 08/25/18 Range/Units 16:36 17:39 19:52 WBC (4.23-9.07) K/mm3 RBC (4.63-6.08) M/mm3 Hgb (13.7-17.5) gm/L Hct (40.1-51.0) % MCV (79.0-92.2) fl MCH (25.7-32.2) pg MCHC (32.2-35.5) g/dl RDW Std Deviation (35.1-43.9) fL Plt Count (163-337) K/mm3 MPV (9.4-12.3) fl Neut % (Auto) (34.0-67.9) % Lymph % (Auto) (21.8-53.1) % [place] % (Auto) (5.3-12.2) % Eos % (Auto) (0.8-7.0) Baso % (Auto) (0.1-1.2) % Neut # (Auto) (1.78-5.38) K/mm3 Lymph # (Auto) (1.32-3.57) K/mm3 [place] # (Auto) (0.30-0.82) K/mm3 Eos # (Auto) (0.04-0.54) K/mm3 Baso # (Auto) (0.01-0.08) K/mm3 Manual Slide Review APTT 46 H (24-31) SECONDS Puncture Site Lt radial ABG pH 7.49 H (7.35-7.45) ABG pCO2 27.3 L (35.0-45.0) mmHg ABG pO2 62.0 L (80.0-100.0) mmHg ABG HCO3 20.5 L (22.0-26.0) meq/L ABG O2 Saturation 93.4 L (96.0-97.0) % ABG Base Excess -1.7 (-2-2.0) Rafael Test Positive A-a Gradient 192 mmHg O2 Delivery Device Venturi Oxygen Flow Rate 10.0 FiO2 45.00 (21.00-100.00) % Sodium (136-145) mEq/L Potassium (3.5-5.1) mEq/L Chloride (98-107) mEq/L Carbon Dioxide (21-32) mEq/L Anion Gap (5-15) BUN (7-18) mg/dL Creatinine (0.7-1.3) mg/dL Est Cr Clr Drug Dosing mL/min Estimated GFR (MDRD) (>60) mL/min BUN/Creatinine Ratio (14-18) Glucose (83-115) mg/dL POC Glucose 174 H (83-110) mg/dL Calcium (8.5-10.1) mg/dL Magnesium (1.8-2.4) mg/dl Total Bilirubin (0.2-1.0) mg/dL AST (15-37) U/L ALT (16-63) U/L Alkaline Phosphatase (46-116) U/L C-Reactive Protein (<1.0) mg/dL NT-Pro-B Natriuret Pep (0-450) pg/mL Total Protein (6.4-8.2) g/dl Albumin (3.4-5.0) g/dl Globulin gm/dL Albumin/Globulin Ratio (1-2) 08/25/18 08/26/18 08/26/18 Range/Units 22:19 03:50 03:50 WBC 15.07 H (4.23-9.07) K/mm3 RBC 3.16 L (4.63-6.08) M/mm3 Hgb 9.4 L (13.7-17.5) gm/L Hct 28.2 L (40.1-51.0) % MCV 89.2 (79.0-92.2) fl MCH 29.7 (25.7-32.2) pg MCHC 33.3 (32.2-35.5) g/dl RDW Std Deviation 58.1 H (35.1-43.9) fL Plt Count 160 L (163-337) K/mm3 MPV 11.2 (9.4-12.3) fl Neut % (Auto) 81.9 H (34.0-67.9) % Lymph % (Auto) 6.3 L (21.8-53.1) % [place] % (Auto) 10.6 (5.3-12.2) % Eos % (Auto) 0.5 L (0.8-7.0) Baso % (Auto) 0.1 (0.1-1.2) % Neut # (Auto) 12.34 H (1.78-5.38) K/mm3 Lymph # (Auto) 0.95 L (1.32-3.57) K/mm3 [place] # (Auto) 1.59 H (0.30-0.82) K/mm3 Eos # (Auto) 0.08 (0.04-0.54) K/mm3 Baso # (Auto) 0.02 (0.01-0.08) K/mm3 Manual Slide Review Abnormal smear APTT (24-31) SECONDS Puncture Site ABG pH (7.35-7.45) ABG pCO2 (35.0-45.0) mmHg ABG pO2 (80.0-100.0) mmHg ABG HCO3 (22.0-26.0) meq/L ABG O2 Saturation (96.0-97.0) % ABG Base Excess (-2-2.0) Rafael Test A-a Gradient mmHg O2 Delivery Device Oxygen Flow Rate FiO2 (21.00-100.00) % Sodium 133 L (136-145) mEq/L Potassium 3.5 (3.5-5.1) mEq/L Chloride 100 (98-107) mEq/L Carbon Dioxide 23 (21-32) mEq/L Anion Gap 13.5 (5-15) BUN 35 H (7-18) mg/dL Creatinine 1.3 (0.7-1.3) mg/dL Est Cr Clr Drug Dosing 36.66 mL/min Estimated GFR (MDRD) 53 (>60) mL/min BUN/Creatinine Ratio 26.9 H (14-18) Glucose 130 H (83-115) mg/dL POC Glucose 168 H (83-110) mg/dL Calcium 8.1 L (8.5-10.1) mg/dL Magnesium 1.9 (1.8-2.4) mg/dl Total Bilirubin 0.7 (0.2-1.0) mg/dL AST 34 (15-37) U/L ALT 18 (16-63) U/L Alkaline Phosphatase 67 (46-116) U/L C-Reactive Protein 24.3 H* (<1.0) mg/dL NT-Pro-B Natriuret Pep (0-450) pg/mL Total Protein 5.4 L (6.4-8.2) g/dl Albumin 2.0 L (3.4-5.0) g/dl Globulin 3.4 gm/dL Albumin/Globulin Ratio 0.6 L (1-2) 08/26/18 08/26/18 08/26/18 Range/Units 03:50 03:50 06:55 WBC (4.23-9.07) K/mm3 RBC (4.63-6.08) M/mm3 Hgb (13.7-17.5) gm/L Hct (40.1-51.0) % MCV (79.0-92.2) fl MCH (25.7-32.2) pg MCHC (32.2-35.5) g/dl RDW Std Deviation (35.1-43.9) fL Plt Count (163-337) K/mm3 MPV (9.4-12.3) fl Neut % (Auto) (34.0-67.9) % Lymph % (Auto) (21.8-53.1) % [place] % (Auto) (5.3-12.2) % Eos % (Auto) (0.8-7.0) Baso % (Auto) (0.1-1.2) % Neut # (Auto) (1.78-5.38) K/mm3 Lymph # (Auto) (1.32-3.57) K/mm3 [place] # (Auto) (0.30-0.82) K/mm3 Eos # (Auto) (0.04-0.54) K/mm3 Baso # (Auto) (0.01-0.08) K/mm3 Manual Slide Review APTT 45 H (24-31) SECONDS Puncture Site ABG pH (7.35-7.45) ABG pCO2 (35.0-45.0) mmHg ABG pO2 (80.0-100.0) mmHg ABG HCO3 (22.0-26.0) meq/L ABG O2 Saturation (96.0-97.0) % ABG Base Excess (-2-2.0) Rafael Test A-a Gradient mmHg O2 Delivery Device Oxygen Flow Rate FiO2 (21.00-100.00) % Sodium (136-145) mEq/L Potassium (3.5-5.1) mEq/L Chloride (98-107) mEq/L Carbon Dioxide (21-32) mEq/L Anion Gap (5-15) BUN (7-18) mg/dL Creatinine (0.7-1.3) mg/dL Est Cr Clr Drug Dosing mL/min Estimated GFR (MDRD) (>60) mL/min BUN/Creatinine Ratio (14-18) Glucose (83-115) mg/dL POC Glucose 136 H (83-110) mg/dL Calcium (8.5-10.1) mg/dL Magnesium (1.8-2.4) mg/dl Total Bilirubin (0.2-1.0) mg/dL AST (15-37) U/L ALT (16-63) U/L Alkaline Phosphatase (46-116) U/L C-Reactive Protein (<1.0) mg/dL NT-Pro-B Natriuret Pep 98066 H (0-450) pg/mL Total Protein (6.4-8.2) g/dl Albumin (3.4-5.0) g/dl Globulin gm/dL Albumin/Globulin Ratio (1-2) // Range/Units 11:39 WBC (4.23-9.07) K/mm3 RBC (4.63-6.08) M/mm3 Hgb (13.7-17.5) gm/L Hct (40.1-51.0) % MCV (79.0-92.2) fl MCH (25.7-32.2) pg MCHC (32.2-35.5) g/dl RDW Std Deviation (35.1-43.9) fL Plt Count (163-337) K/mm3 MPV (9.4-12.3) fl Neut % (Auto) (34.0-67.9) % Lymph % (Auto) (21.8-53.1) % [place] % (Auto) (5.3-12.2) % Eos % (Auto) (0.8-7.0) Baso % (Auto) (0.1-1.2) % Neut # (Auto) (1.78-5.38) K/mm3 Lymph # (Auto) (1.32-3.57) K/mm3 [place] # (Auto) (0.30-0.82) K/mm3 Eos # (Auto) (0.04-0.54) K/mm3 Baso # (Auto) (0.01-0.08) K/mm3 Manual Slide Review APTT (24-31) SECONDS Puncture Site ABG pH (7.35-7.45) ABG pCO2 (35.0-45.0) mmHg ABG pO2 (80.0-100.0) mmHg ABG HCO3 (22.0-26.0) meq/L ABG O2 Saturation (96.0-97.0) % ABG Base Excess (-2-2.0) Rafael Test A-a Gradient mmHg O2 Delivery Device Oxygen Flow Rate FiO2 (21.00-100.00) % Sodium (136-145) mEq/L Potassium (3.5-5.1) mEq/L Chloride (98-107) mEq/L Carbon Dioxide (21-32) mEq/L Anion Gap (5-15) BUN (7-18) mg/dL Creatinine (0.7-1.3) mg/dL Est Cr Clr Drug Dosing mL/min Estimated GFR (MDRD) (>60) mL/min BUN/Creatinine Ratio (14-18) Glucose (83-115) mg/dL POC Glucose 205 H (83-110) mg/dL Calcium (8.5-10.1) mg/dL Magnesium (1.8-2.4) mg/dl Total Bilirubin (0.2-1.0) mg/dL AST (15-37) U/L ALT (16-63) U/L Alkaline Phosphatase (46-116) U/L C-Reactive Protein (<1.0) mg/dL NT-Pro-B Natriuret Pep (0-450) pg/mL Total Protein (6.4-8.2) g/dl Albumin (3.4-5.0) g/dl Globulin gm/dL Albumin/Globulin Ratio (1-2) Hieu Results Last 24 Hours: Microbiology 08/24/18 19:55 Urine Culture - Final Urine, Clean Catch Klebsiella Pneumoniae Med Orders - Current: Current Medications Acetaminophen (Tylenol) 650 mg PO Q4H PRN PRN Reason: Pain (Mild 1-3)/fever Hydrocodone Bitart/Acetaminophen ([place] 325-5 Mg) 1 tab PO Q4H PRN PRN Reason: Pain (moderate 4-6) Finasteride (Proscar) 5 mg PO DAILY [facility] [place] Last Admin: 08/26/18 08:53 Dose: 5 mg Heparin Sodium (Porcine) (Heparin Sodium) 5,000 units SUBCUT Q8H [facility] [place] Cefazolin Sodium/Dextrose 1 gm (/ Premix) 50 mls @ 100 mls/hr IV Q8HR [facility] [place] Insulin Human Lispro (Humalog) 0 unit SUBCUT QIDACANDBED [facility] [place]; Protocol Last Admin: 08/26/18 12:04 Dose: 2 unit Ondansetron HCl (Zofran Odt) 4 mg PO Q4H PRN PRN Reason: nausea, able to take PO Ondansetron HCl (Zofran) 4 mg IV Q4H PRN PRN Reason: Nausea/Vomiting Pantoprazole Sodium (Protonix) 40 mg PO DAILY@0700 [facility] [place] Last Admin: 08/26/18 06:57 Dose: Not Given Sodium Chloride (Saline Flush) 10 ml FLUSH ASDIRECTED PRN PRN Reason: Keep Vein Open Last Admin: 08/24/18 17:30 Dose: 10 ml Tamsulosin HCl (Flomax) 0.4 mg PO DAILY [facility] [place] Last Admin: 08/26/18 08:53 Dose: 0.4 mg Vancomycin HCl (Pharmacy To Dose - Vancomycin) 0 dose .XX ASDIRECTED PRN PRN Reason: RX TO DOSE VANCO Discontinued Medications Acetaminophen (Tylenol) 975 mg PO NOW ONE Stop: 08/24/18 17:20 Last Admin: 08/24/18 17:46 Dose: 975 mg Ceftriaxone Sodium (Rocephin) 2 gm IV ONETIME ONE Stop: 08/24/18 18:54 Last Admin: 08/24/18 19:44 Dose: Not Given Furosemide (Lasix) 20 mg IVPUSH NOW ONE Stop: 08/25/18 09:20 Last Admin: 08/25/18 09:36 Dose: 20 mg Furosemide (Lasix) 20 mg IVPUSH NOW ONE Stop: 08/25/18 14:34 Last Admin: 08/25/18 14:48 Dose: 20 mg Furosemide (Lasix) 20 mg IVPUSH NOW ONE Stop: 08/26/18 05:01 Last Admin: 08/26/18 04:56 Dose: 20 mg Heparin Sodium (Porcine) (Heparin Sodium) 5,000 units SUBCUT Q8H [place] Last Admin: 08/25/18 09:21 Dose: Not Given Heparin Sodium (Porcine) (Heparin Sodium) 3,550 units IVPUSH .BOLUS ONE Stop: 08/25/18 08:31 Last Admin: 08/25/18 08:50 Dose: 3,550 units Sodium Chloride (Normal Saline) 500 mls @ 999 mls/hr IV .BOLUS ONE Stop: 08/24/18 17:38 Last Admin: 08/24/18 17:30 Dose: 999 mls/hr Ceftriaxone Sodium 2 gm/ (Sodium Chloride) 100 mls @ 200 mls/hr IV ONETIME ONE Stop: 08/24/18 19:52 Last Admin: 08/24/18 19:38 Dose: 200 mls/hr Sodium Chloride (Normal Saline) 500 mls @ 999 mls/hr IV .BOLUS ONE Stop: 08/24/18 20:00 Last Admin: 08/24/18 19:31 Dose: 999 mls/hr Lactated Ringer's (Ringers, Lactated) Confirm Administered Dose 1,000 mls @ as directed .ROUTE .STK-MED ONE Stop: 08/24/18 21:21 Last Admin: 08/25/18 00:23 Dose: Not Given Lactated Ringer's (Ringers, Lactated) 1,000 mls @ 75 mls/hr IV ASDIRECTED [facility] [place] Last Admin: 08/24/18 21:38 Dose: 75 mls/hr Ceftriaxone Sodium 2 gm/ (Sodium Chloride) 100 mls @ 200 mls/hr IV Q24H [facility] [place] Lactated Ringer's (Ringers, Lactated) 500 mls @ 999 mls/hr IV ONETIME ONE Stop: 08/25/18 01:29 Last Admin: 08/25/18 00:55 Dose: 999 mls/hr Lactated Ringer's (Ringers, Lactated) 1,000 mls @ 30 mls/hr IV ASDIRECTED [facility] [place] Magnesium Sulfate 4 gm/ Premix 50 mls @ 12.5 mls/hr IV ONETIME ONE Stop: 08/25/18 11:30 Last Admin: 08/25/18 07:54 Dose: 12.5 mls/hr Heparin Sodium/Dextrose (Heparin 25,000 Units In D5w 500 Ml) 25,000 units in 500 mls @ 14.2 mls/hr IV TITRATE [place]; Protocol Last Titration: 08/26/18 04:45 Dose: 775 units/hr, 15.5 mls/hr Lactated Ringer's (Ringers, Lactated) 1,000 mls @ 75 mls/hr IV ASDIRECTED [facility] [place] Meropenem/Sodium Chloride 500 (mg/ Premix) 50 mls @ 100 mls/hr IV Q8H [facility] [place] Last Admin: 08/26/18 08:53 Dose: 100 mls/hr Vancomycin HCl 1 gm/Vancomycin HCl 250 mg/ Sodium Chloride 250 mls @ 166.667 mls/hr IV ONETIME ONE Stop: 08/25/18 09:59 Last Admin: 08/25/18 09:14 Dose: 166.667 mls/hr Vancomycin HCl 1 gm/ Sodium (Chloride) 250 mls @ 250 mls/hr IV Q24H [facility] [place] Last Admin: 08/26/18 08:53 Dose: 250 mls/hr Nifedipine (Procardia) 60 mg PO QPM [facility] [place] Last Admin: 08/25/18 00:19 Dose: 60 mg Oxybutynin Chloride (Oxybutynin) 5 mg PO DAILY [facility] [place] Last Admin: 08/26/18 08:53 Dose: 5 mg - Exam Quality Assessment: Supplemental Oxygen General: Alert, Oriented HEENT: Pupils Equal, Pupils Reactive Neck: Supple Lungs: Clear to Auscultation, Normal Respiratory Effort Cardiovascular: Regular Rate, Regular Rhythm GI/Abdominal Exam: Normal Bowel Sounds, Soft, Non-Tender, No Organomegaly, No Distention Extremities: Normal Inspection, Normal Range of Motion, Non-Tender, No Pedal Edema Skin: Warm, Dry, Intact Neurological: No New Focal Deficit Psy/Mental Status: Alert, Normal Affect, Normal Mood - Problem List & Annotations (1) Bladder cancer SNOMED Code(s): 269736515 Code(s): C67.9 - MALIGNANT NEOPLASM OF BLADDER, UNSPECIFIED Status: Acute Current Visit: Yes (2) Urinary tract infection SNOMED Code(s): 95763541 Code(s): N39.0 - URINARY TRACT INFECTION, SITE NOT SPECIFIED Status: Acute Current Visit: Yes Qualifiers: Urinary tract infection type: acute pyelonephritis Qualified Code(s): N10 - Acute pyelonephritis (3) Pancreatic cancer SNOMED Code(s): 492917462 Code(s): C25.9 - MALIGNANT NEOPLASM OF PANCREAS, UNSPECIFIED Status: Acute Current Visit: No Qualifiers: Pancreatic malignancy location: unspecified Qualified Code(s): C25.9 - Malignant neoplasm of pancreas, unspecified (4) Sepsis SNOMED Code(s): 92245417 Code(s): A41.9 - SEPSIS, UNSPECIFIED ORGANISM Status: Acute Current Visit : Yes (5) Non-STEMI (non-ST elevated myocardial infarction) SNOMED Code(s): 57263118 Code(s): I21.4 - NON-ST ELEVATION (NSTEMI) MYOCARDIAL INFARCTION Status: Acute Current Visit: Yes - Problem List Review Problem List Initiated/Reviewed/Updated: Yes - My Orders Last 24 Hours: My Active Orders 08/25/18 14:32 Convert IV to Saline Lock [OM.PC] Stat 08/26/18 09:00 Finasteride [Proscar] 5 mg PO DAILY 08/26/18 14:00 ceFAZolin [Ancef] 1 gm Premix Bag 1 bag IV Q8HR 08/26/18 19:00 Heparin Sodium 5,000 units SUBCUT Q8H 08/27/18 08:30 VANCOMYCIN TROUGH [CHEM] Timed - Plan Plan:: Assessment * 83-year-old male with history of pancreatic and bladder cancer finishing chemotherapy and radiation on August 02, admitted for complicated UTI * Review of old records show that he grew out Klebsiella pneumonia from a urine done on August 03, 2018 pansensitive except to Macrobid. * This admissions urine culture also grew out Klebsiella pneumonia pansensitive except to Macrobid * non-STEMI * Pulmonary edema - proBNP 24,000-->22,000 * Past medical history diabetes, hypertension * chest x-ray with acute on chronic pulmonary congestion Plan * Ancef 1 g every 8 * Lasix 20 mg IV twice a day * DC heparin drip and start back on subcutaneous heparin * CBC, CMP, C-reactive protein, lactic acid, magnesium morning * Sliding-scale insulin * continue FiO2 to keep SPO2 greater than 90% * Echocardiogram today * PT/OT * CODE STATUS: DO NOT RESUSCITATE /DO NOT INTUBATE. I discussed this personally with the patient. * Prognosis is poor * I discussed the patient and his the gravity of his situation. I offered transfer to [place] for higher level of care versus continuing treatment here. Patient currently is doing better, blood pressures have come up, pulse has decreased, and he is resting comfortably. * patient will have a length of stay greater than 96 hours secondary to complications of non-STEMI, sepsis, and hypotension.
[2018-08-26] MEDS ORDERED: Potassium Chloride 20 MEQ Tab.ER PO ONE (14:00)
[2018-08-26] MEDS: Furosemide 20 MG/2 ML VIAL IVPUSH SCH ×2 (15:26→20:34)
[2018-08-26] MEDS: ceFAZolin 1 GM in Premix Bag 1 BAG IV SCH (15:26)
--- NOTE | 2018-08-26 16:05 | US ---
Renal ultrasound: Multiple real-time images of the kidneys were obtained. Comparison: Previous CT abdominal and pelvis study of 02/25/18. Slightly prominent renal pelvis noted within both kidneys. This finding within the kidneys appears as an interval change from prior CT exam. Kidneys otherwise appear normal in appearance by ultrasound exam. Resistive indices are grossly unremarkable. Prevoid bladder volume is 49 mL with bladder emptying completely and postvoid exam. Measurements: Right kidney: Length 10.9 cm, left kidney: Length 12.6 cm Impression: 1. Prominent collecting systems of both kidneys as interval change from prior CT abdomen exam. Prominent collecting systems can be seen with pyelonephritis as well as differential including bilateral vesicoureteral reflux. 2. No additional abnormality is appreciated on renal ultrasound exam. Diagnostic code #3
[2018-08-26] MEDS: Heparin Sodium 5,000 Units/ML Vial SUBCUT SCH (18:19)
[2018-08-26] MEDS: Sodium Chloride 0.9% 10 ML Syringe FLUSH PRN (20:36)
[2018-08-27] MEDS: Heparin Sodium 5,000 Units/ML Vial SUBCUT SCH ×3 (03:38→18:13)
[2018-08-27] MEDS: Insulin Lispro 100 Units/ML 3 ML Vial SUBCUT SCH ×4 (06:30→21:25)
[2018-08-27] MEDS: Pantoprazole 40 MG Tab.CR PO SCH (06:31)
[2018-08-27] MEDS: Finasteride 5 MG Tab PO SCH (08:13)
[2018-08-27] MEDS: Tamsulosin 0.4 MG Cap.ER PO SCH (08:13)
[2018-08-27] MEDS: ceFAZolin 1 GM in Premix Bag 1 BAG IV SCH ×4 (08:13→15:46)
[2018-08-27] MEDS: Furosemide 20 MG/2 ML VIAL IVPUSH SCH (08:13)
[2018-08-27] MEDS ORDERED: Magnesium Sulfate/Water 4 GM in Premix Bag 1 BAG IV ONE (09:17)
--- NOTE | 2018-08-27 12:48 | PCM.PN ---
- General Info Date of Service: 08/27/18 Admission Dx/Problem (Free Text): Admission Diagnosis/Problem Admission Diagnosis/Problem Pyelonephritis Subjective Update: August 25, 2018 Patient is resting comfortably after a difficult night. Please see previous note for details. Patient states that his shortness of breath is much improved. He is no longer having chest pain. We started heparin drip for his non-STEMI. August 26, 2018 Patient continues to wean down on his oxygen. He is currently on only 4 L nasal cannula. He continues to diurese, but a total of 9 pound weight gain since admission. He had a good breakfast this morning and states he is feeling better. August 27, 2018 Fab continues to improve. He is now off of his O2. He is within 2 pounds of his admission weight. He denies any shortness of breath, chest pain, or edema. He states he is about back at baseline. Afebrile overnight. - Review of Systems General: Reports: No Symptoms. Denies: Fever, Weakness, Fatigue HEENT: Reports: No Symptoms Pulmonary: Reports: No Symptoms. Denies: Shortness of Breath, Cough Cardiovascular: Reports: No Symptoms. Denies: Chest Pain, Palpitations Gastrointestinal: Reports: No Symptoms Neurological: Reports: No Symptoms - Patient Data Vitals - Most Recent: Last Vital Signs Temp 97.8 F 08/27/18 11:12 Pulse 91 08/27/18 11:12 Resp 15 08/27/18 11:12 BP 117/75 08/27/18 11:12 Pulse Ox 96 08/27/18 11:12 Weight - Most Recent: 127 lb 9.6 oz I&O - Last 24 Hours: Intake & Output 08/26/18 08/27/18 08/27/18 22:59 06:59 14:59 Intake Total 980 450 300 Balance 980 450 300 Lab Results Last 24 Hours: Laboratory Results - last 24 hr 08/26/18 08/26/18 08/27/18 Range/Units 18:16 21:04 04:50 WBC (4.23-9.07) K/mm3 RBC (4.63-6.08) M/mm3 Hgb (13.7-17.5) gm/L Hct (40.1-51.0) % MCV (79.0-92.2) fl MCH (25.7-32.2) pg MCHC (32.2-35.5) g/dl RDW Std Deviation (35.1-43.9) fL Plt Count (163-337) K/mm3 MPV (9.4-12.3) fl Neut % (Auto) (34.0-67.9) % Lymph % (Auto) (21.8-53.1) % [place] % (Auto) (5.3-12.2) % Eos % (Auto) (0.8-7.0) Baso % (Auto) (0.1-1.2) % Neut # (Auto) (1.78-5.38) K/mm3 Lymph # (Auto) (1.32-3.57) K/mm3 [place] # (Auto) (0.30-0.82) K/mm3 Eos # (Auto) (0.04-0.54) K/mm3 Baso # (Auto) (0.01-0.08) K/mm3 Manual Slide Review Sodium (136-145) mEq/L Potassium (3.5-5.1) mEq/L Chloride (98-107) mEq/L Carbon Dioxide (21-32) mEq/L Anion Gap (5-15) BUN (7-18) mg/dL Creatinine (0.7-1.3) mg/dL Est Cr Clr Drug Dosing mL/min Estimated GFR (MDRD) (>60) mL/min BUN/Creatinine Ratio (14-18) Glucose (83-115) mg/dL POC Glucose 129 H 224 H (83-110) mg/dL Calcium (8.5-10.1) mg/dL Magnesium (1.8-2.4) mg/dl Total Bilirubin (0.2-1.0) mg/dL AST (15-37) U/L ALT (16-63) U/L Alkaline Phosphatase (46-116) U/L NT-Pro-B Natriuret Pep 00388 H (0-450) pg/mL Total Protein (6.4-8.2) g/dl Albumin (3.4-5.0) g/dl Globulin gm/dL Albumin/Globulin Ratio (1-2) 08/27/18 08/27/18 08/27/18 Range/Units 04:50 04:50 06:29 WBC 12.50 H (4.23-9.07) K/mm3 RBC 3.39 L (4.63-6.08) M/mm3 Hgb 9.8 L (13.7-17.5) gm/L Hct 30.3 L (40.1-51.0) % MCV 89.4 (79.0-92.2) fl MCH 28.9 (25.7-32.2) pg MCHC 32.3 (32.2-35.5) g/dl RDW Std Deviation 57.9 H (35.1-43.9) fL Plt Count 190 (163-337) K/mm3 MPV 11.9 (9.4-12.3) fl Neut % (Auto) 79.5 H (34.0-67.9) % Lymph % (Auto) 7.0 L (21.8-53.1) % [place] % (Auto) 12.0 (5.3-12.2) % Eos % (Auto) 0.8 (0.8-7.0) Baso % (Auto) 0.2 (0.1-1.2) % Neut # (Auto) 9.95 H (1.78-5.38) K/mm3 Lymph # (Auto) 0.87 L (1.32-3.57) K/mm3 [place] # (Auto) 1.50 H (0.30-0.82) K/mm3 Eos # (Auto) 0.10 (0.04-0.54) K/mm3 Baso # (Auto) 0.02 (0.01-0.08) K/mm3 Manual Slide Review Abnormal smear Sodium 135 L (136-145) mEq/L Potassium 3.8 (3.5-5.1) mEq/L Chloride 101 (98-107) mEq/L Carbon Dioxide 25 (21-32) mEq/L Anion Gap 12.8 (5-15) BUN 36 H (7-18) mg/dL Creatinine 1.3 (0.7-1.3) mg/dL Est Cr Clr Drug Dosing 34.63 mL/min Estimated GFR (MDRD) 53 (>60) mL/min BUN/Creatinine Ratio 27.7 H (14-18) Glucose 141 H (83-115) mg/dL POC Glucose 124 H (83-110) mg/dL Calcium 8.8 (8.5-10.1) mg/dL Magnesium 1.5 L (1.8-2.4) mg/dl Total Bilirubin 0.6 (0.2-1.0) mg/dL AST 25 (15-37) U/L ALT 19 (16-63) U/L Alkaline Phosphatase 71 (46-116) U/L NT-Pro-B Natriuret Pep (0-450) pg/mL Total Protein 5.7 L (6.4-8.2) g/dl Albumin 2.2 L (3.4-5.0) g/dl Globulin 3.5 gm/dL Albumin/Globulin Ratio 0.6 L (1-2) 08/27/18 Range/Units 10:46 WBC (4.23-9.07) K/mm3 RBC (4.63-6.08) M/mm3 Hgb (13.7-17.5) gm/L Hct (40.1-51.0) % MCV (79.0-92.2) fl MCH (25.7-32.2) pg MCHC (32.2-35.5) g/dl RDW Std Deviation (35.1-43.9) fL Plt Count (163-337) K/mm3 MPV (9.4-12.3) fl Neut % (Auto) (34.0-67.9) % Lymph % (Auto) (21.8-53.1) % [place] % (Auto) (5.3-12.2) % Eos % (Auto) (0.8-7.0) Baso % (Auto) (0.1-1.2) % Neut # (Auto) (1.78-5.38) K/mm3 Lymph # (Auto) (1.32-3.57) K/mm3 [place] # (Auto) (0.30-0.82) K/mm3 Eos # (Auto) (0.04-0.54) K/mm3 Baso # (Auto) (0.01-0.08) K/mm3 Manual Slide Review Sodium (136-145) mEq/L Potassium (3.5-5.1) mEq/L Chloride (98-107) mEq/L Carbon Dioxide (21-32) mEq/L Anion Gap (5-15) BUN (7-18) mg/dL Creatinine (0.7-1.3) mg/dL Est Cr Clr Drug Dosing mL/min Estimated GFR (MDRD) (>60) mL/min BUN/Creatinine Ratio (14-18) Glucose (83-115) mg/dL POC Glucose 228 H (83-110) mg/dL Calcium (8.5-10.1) mg/dL Magnesium (1.8-2.4) mg/dl Total Bilirubin (0.2-1.0) mg/dL AST (15-37) U/L ALT (16-63) U/L Alkaline Phosphatase (46-116) U/L NT-Pro-B Natriuret Pep (0-450) pg/mL Total Protein (6.4-8.2) g/dl Albumin (3.4-5.0) g/dl Globulin gm/dL Albumin/Globulin Ratio (1-2) Hieu Results Last 24 Hours: Microbiology 08/24/18 19:55 Urine Culture - Final Urine, Clean Catch Klebsiella Pneumoniae Med Orders - Current: Current Medications Acetaminophen (Tylenol) 650 mg PO Q4H PRN PRN Reason: Pain (Mild 1-3)/fever Hydrocodone Bitart/Acetaminophen ([place] 325-5 Mg) 1 tab PO Q4H PRN PRN Reason: Pain (moderate 4-6) Finasteride (Proscar) 5 mg PO DAILY [facility] Last Admin: 08/27/18 08:13 Dose: 5 mg Heparin Sodium (Porcine) (Heparin Sodium) 5,000 units SUBCUT Q8H [facility] Last Admin: 08/27/18 10:38 Dose: 5,000 units Cefazolin Sodium/Dextrose 1 gm (/ Premix) 50 mls @ 100 mls/hr IV Q8H [facility] Last Admin: 08/27/18 08:13 Dose: 100 mls/hr Magnesium Sulfate 4 gm/ Premix 50 mls @ 12.5 mls/hr IV ONETIME ONE Stop: 08/27/18 13:16 Last Admin: 08/27/18 10:37 Dose: 12.5 mls/hr Insulin Human Lispro (Humalog) 0 unit SUBCUT QIDACANDBED [facility]; Protocol Last Admin: 08/27/18 10:49 Dose: 2 unit Ondansetron HCl (Zofran Odt) 4 mg PO Q4H PRN PRN Reason: nausea, able to take PO Ondansetron HCl (Zofran) 4 mg IV Q4H PRN PRN Reason: Nausea/Vomiting Pantoprazole Sodium (Protonix) 40 mg PO DAILY@0700 [facility] Last Admin: 08/27/18 06:31 Dose: 40 mg Sodium Chloride (Saline Flush) 10 ml FLUSH ASDIRECTED PRN PRN Reason: Keep Vein Open Last Admin: 08/26/18 20:36 Dose: 10 ml Tamsulosin HCl (Flomax) 0.4 mg PO DAILY [facility] Last Admin: 08/27/18 08:13 Dose: 0.4 mg Discontinued Medications Acetaminophen (Tylenol) 975 mg PO NOW ONE Stop: 08/24/18 17:20 Last Admin: 08/24/18 17:46 Dose: 975 mg Ceftriaxone Sodium (Rocephin) 2 gm IV ONETIME ONE Stop: 08/24/18 18:54 Last Admin: 08/24/18 19:44 Dose: Not Given Furosemide (Lasix) 20 mg IVPUSH NOW ONE Stop: 08/25/18 09:20 Last Admin: 08/25/18 09:36 Dose: 20 mg Furosemide (Lasix) 20 mg IVPUSH NOW ONE Stop: 08/25/18 14:34 Last Admin: 08/25/18 14:48 Dose: 20 mg Furosemide (Lasix) 20 mg IVPUSH NOW ONE Stop: 08/26/18 05:01 Last Admin: 08/26/18 04:56 Dose: 20 mg Furosemide (Lasix) 20 mg IVPUSH BID [facility] Last Admin: 08/27/18 08:13 Dose: 20 mg Heparin Sodium (Porcine) (Heparin Sodium) 5,000 units SUBCUT Q8H [facility] Last Admin: 08/25/18 09:21 Dose: Not Given Heparin Sodium (Porcine) (Heparin Sodium) 3,550 units IVPUSH .BOLUS ONE Stop: 08/25/18 08:31 Last Admin: 08/25/18 08:50 Dose: 3,550 units Sodium Chloride (Normal Saline) 500 mls @ 999 mls/hr IV .BOLUS ONE Stop: 08/24/18 17:38 Last Admin: 08/24/18 17:30 Dose: 999 mls/hr Ceftriaxone Sodium 2 gm/ (Sodium Chloride) 100 mls @ 200 mls/hr IV ONETIME ONE Stop: 08/24/18 19:52 Last Admin: 08/24/18 19:38 Dose: 200 mls/hr Sodium Chloride (Normal Saline) 500 mls @ 999 mls/hr IV .BOLUS ONE Stop: 08/24/18 20:00 Last Admin: 08/24/18 19:31 Dose: 999 mls/hr Lactated Ringer's (Ringers, Lactated) Confirm Administered Dose 1,000 mls @ as directed .ROUTE .STK-MED ONE Stop: 08/24/18 21:21 Last Admin: 08/25/18 00:23 Dose: Not Given Lactated Ringer's (Ringers, Lactated) 1,000 mls @ 75 mls/hr IV ASDIRECTED [place] Last Admin: 08/24/18 21:38 Dose: 75 mls/hr Ceftriaxone Sodium 2 gm/ (Sodium Chloride) 100 mls @ 200 mls/hr IV Q24H [place] Lactated Ringer's (Ringers, Lactated) 500 mls @ 999 mls/hr IV ONETIME ONE Stop: 08/25/18 01:29 Last Admin: 08/25/18 00:55 Dose: 999 mls/hr Lactated Ringer's (Ringers, Lactated) 1,000 mls @ 30 mls/hr IV ASDIRECTED [place] Magnesium Sulfate 4 gm/ Premix 50 mls @ 12.5 mls/hr IV ONETIME ONE Stop: 08/25/18 11:30 Last Admin: 08/25/18 07:54 Dose: 12.5 mls/hr Heparin Sodium/Dextrose (Heparin 25,000 Units In D5w 500 Ml) 25,000 units in 500 mls @ 14.2 mls/hr IV TITRATE [place]; Protocol Last Titration: 08/26/18 04:45 Dose: 775 units/hr, 15.5 mls/hr Lactated Ringer's (Ringers, Lactated) 1,000 mls @ 75 mls/hr IV ASDIRECTED [place] Meropenem/Sodium Chloride 500 (mg/ Premix) 50 mls @ 100 mls/hr IV Q8H [facility] Last Admin: 08/26/18 08:53 Dose: 100 mls/hr Vancomycin HCl 1 gm/Vancomycin HCl 250 mg/ Sodium Chloride 250 mls @ 166.667 mls/hr IV ONETIME ONE Stop: 08/25/18 09:59 Last Admin: 08/25/18 09:14 Dose: 166.667 mls/hr Vancomycin HCl 1 gm/ Sodium (Chloride) 250 mls @ 250 mls/hr IV Q24H [facility] Last Admin: 08/26/18 08:53 Dose: 250 mls/hr Nifedipine (Procardia) 60 mg PO QPM [facility] Last Admin: 08/25/18 00:19 Dose: 60 mg Oxybutynin Chloride (Oxybutynin) 5 mg PO DAILY [facility] Last Admin: 08/26/18 08:53 Dose: 5 mg Potassium Chloride (Klor-Con M20) 40 meq PO ONETIME ONE Stop: 08/26/18 14:01 Last Admin: 08/26/18 15:26 Dose: 40 meq Vancomycin HCl (Pharmacy To Dose - Vancomycin) 0 dose .XX ASDIRECTED PRN PRN Reason: RX TO DOSE VANCO - Exam Quality Assessment: No: Supplemental Oxygen General: Alert, Oriented HEENT: Pupils Equal, Pupils Reactive Neck: Supple Lungs: Clear to Auscultation, Normal Respiratory Effort Cardiovascular: Regular Rate, Regular Rhythm GI/Abdominal Exam: Normal Bowel Sounds, Soft, Non-Tender, No Organomegaly, No Distention Extremities: Normal Inspection, Normal Range of Motion, Non-Tender, No Pedal Edema Skin: Warm, Dry, Intact Neurological: No New Focal Deficit Psy/Mental Status: Alert, Normal Affect, Normal Mood - Problem List & Annotations (1) Bladder cancer SNOMED Code(s): 575734280 Code(s): C67.9 - MALIGNANT NEOPLASM OF BLADDER, UNSPECIFIED Status: Acute Current Visit: Yes (2) Urinary tract infection SNOMED Code(s): 30096173 Code(s): N39.0 - URINARY TRACT INFECTION, SITE NOT SPECIFIED Status: Acute Current Visit: Yes Qualifiers: Urinary tract infection type: acute pyelonephritis Qualified Code(s): N10 - Acute pyelonephritis (3) Pancreatic cancer SNOMED Code(s): 764837154 Code(s): C25.9 - MALIGNANT NEOPLASM OF PANCREAS, UNSPECIFIED Status: Acute Current Visit: No Qualifiers: Pancreatic malignancy location: unspecified Qualified Code(s): C25.9 - Malignant neoplasm of pancreas, unspecified (4) Sepsis SNOMED Code(s): 09547189 Code(s): A41.9 - SEPSIS, UNSPECIFIED ORGANISM Status: Acute Current Visit : Yes (5) Non-STEMI (non-ST elevated myocardial infarction) SNOMED Code(s): 56489830 Code(s): I21.4 - NON-ST ELEVATION (NSTEMI) MYOCARDIAL INFARCTION Status: Acute Current Visit: Yes - Problem List Review Problem List Initiated/Reviewed/Updated: Yes - My Orders Last 24 Hours: My Active Orders 08/26/18 16:00 ceFAZolin [Ancef] 1 gm Premix Bag 1 bag IV Q8H 08/26/18 19:00 Heparin Sodium 5,000 units SUBCUT Q8H 08/27/18 09:17 Magnesium Sulfate/Water [Magnesium Sulfate in Water Premix] 4 gm Premix Bag 1 bag IV ONETIME - Plan Plan:: Assessment * 83-year-old male with history of pancreatic and bladder cancer finishing chemotherapy and radiation on August 02, admitted for complicated UTI * Review of old records show that he grew out Klebsiella pneumonia from a urine done on August 03, 2018 pansensitive except to Macrobid. * urine cultures positive for Klebsiella pneumonia sensitive to Ancef * non-STEMI * Pulmonary edema - proBNP 24,000-->22,000-->23,000 * Past medical history diabetes, hypertension * chest x-ray with acute on chronic pulmonary congestion on August 26, 2018 * Patient is doing much better and off of O2. Plan * Ancef 1 g every 8 * stop Lasix 20 mg IV twice a day and monitor oxygen status and weight. * DC heparin drip and start back on subcutaneous heparin * CBC, CMP, C-reactive protein, lactic acid, magnesium morning * Sliding-scale insulin * continue FiO2 to keep SPO2 greater than 90%. currently off O2 with saturations in the mid 90s * Echocardiogram result pending * PT/OT * CODE STATUS: DO NOT RESUSCITATE /DO NOT INTUBATE. I discussed this personally with the patient. * Prognosis is poor * I discussed the patient and his the gravity of his situation. I offered transfer to [place] for higher level of care versus continuing treatment here. Patient currently is doing better, blood pressures have come up, pulse has decreased, and he is resting comfortably. * patient will have a length of stay greater than 96 hours secondary to complications of non-STEMI, sepsis, and hypotension.
[2018-08-28] MEDS: Sodium Chloride 0.9% 10 ML Syringe FLUSH PRN (00:10)
[2018-08-28] MEDS: ceFAZolin 1 GM in Premix Bag 1 BAG IV SCH ×2 (00:11→08:10)
[2018-08-28] MEDS: Heparin Sodium 5,000 Units/ML Vial SUBCUT SCH ×2 (04:00→10:44)
[2018-08-28] MEDS: Insulin Lispro 100 Units/ML 3 ML Vial SUBCUT SCH ×4 (06:46→21:02)
[2018-08-28] MEDS: Pantoprazole 40 MG Tab.CR PO SCH (06:52)
[2018-08-28] MEDS: Finasteride 5 MG Tab PO SCH (08:10)
[2018-08-28] MEDS: Tamsulosin 0.4 MG Cap.ER PO SCH (08:10)
[2018-08-28] MEDS ORDERED: Magnesium Sulfate/Water 2 GM in Premix Bag 1 BAG IV ONE (11:31)
--- NOTE | 2018-08-28 11:49 | PCM.PN ---
- General Info Date of Service: 08/28/18 Admission Dx/Problem (Free Text): Admission Diagnosis/Problem Admission Diagnosis/Problem Pyelonephritis Subjective Update: August 25, 2018 Patient is resting comfortably after a difficult night. Please see previous note for details. Patient states that his shortness of breath is much improved. He is no longer having chest pain. We started heparin drip for his non-STEMI. August 26, 2018 Patient continues to wean down on his oxygen. He is currently on only 4 L nasal cannula. He continues to diurese, but a total of 9 pound weight gain since admission. He had a good breakfast this morning and states he is feeling better. August 27, 2018 Fab continues to improve. He is now off of his O2. He is within 2 pounds of his admission weight. He denies any shortness of breath, chest pain, or edema. He states he is about back at baseline. Afebrile overnight. August 28, 2018 Patient has continued improvement. He had another pound weight loss yesterday and is without any shortness of breath, chest pain, or edema. He continues afebrile. Functional Status: Reports: Pain Controlled - Review of Systems General: Reports: No Symptoms HEENT: Reports: No Symptoms Pulmonary: Reports: No Symptoms Cardiovascular: Reports: No Symptoms Gastrointestinal: Reports: No Symptoms Genitourinary: Reports: No Symptoms - Patient Data Vitals - Most Recent: Last Vital Signs Temp 98.0 F 08/28/18 11:21 Pulse 83 08/28/18 11:21 Resp 16 08/28/18 11:21 BP 127/68 08/28/18 11:21 Pulse Ox 100 08/28/18 11:21 Weight - Most Recent: 127 lb I&O - Last 24 Hours: Intake & Output 08/27/18 08/28/18 08/28/18 22:59 06:59 14:59 Intake Total 1260 450 180 Balance 1260 450 180 Lab Results Last 24 Hours: Laboratory Results - last 24 hr 08/27/18 08/27/18 08/28/18 Range/Units 15:33 20:44 05:31 WBC 11.15 H (4.23-9.07) K/mm3 RBC 3.46 L (4.63-6.08) M/mm3 Hgb 10.1 L (13.7-17.5) gm/L Hct 31.1 L (40.1-51.0) % MCV 89.9 (79.0-92.2) fl MCH 29.2 (25.7-32.2) pg MCHC 32.5 (32.2-35.5) g/dl RDW Std Deviation 58.0 H (35.1-43.9) fL Plt Count 215 (163-337) K/mm3 MPV 12.3 (9.4-12.3) fl Neut % (Auto) 71.5 H (34.0-67.9) % Lymph % (Auto) 9.8 L (21.8-53.1) % Rice % (Auto) 15.7 H (5.3-12.2) % Eos % (Auto) 1.3 (0.8-7.0) Baso % (Auto) 0.4 (0.1-1.2) % Neut # (Auto) 7.98 H (1.78-5.38) K/mm3 Lymph # (Auto) 1.09 L (1.32-3.57) K/mm3 Rice # (Auto) 1.75 H (0.30-0.82) K/mm3 Eos # (Auto) 0.14 (0.04-0.54) K/mm3 Baso # (Auto) 0.05 (0.01-0.08) K/mm3 Manual Slide Review Abnormal smear Sodium (136-145) mEq/L Potassium (3.5-5.1) mEq/L Chloride (98-107) mEq/L Carbon Dioxide (21-32) mEq/L Anion Gap (5-15) BUN (7-18) mg/dL Creatinine (0.7-1.3) mg/dL Est Cr Clr Drug Dosing mL/min Estimated GFR (MDRD) (>60) mL/min BUN/Creatinine Ratio (14-18) Glucose (83-115) mg/dL POC Glucose 151 H 137 H (83-110) mg/dL Calcium (8.5-10.1) mg/dL Magnesium (1.8-2.4) mg/dl C-Reactive Protein (<1.0) mg/dL 08/28/18 08/28/18 Range/Units 05:31 10:42 WBC (4.23-9.07) K/mm3 RBC (4.63-6.08) M/mm3 Hgb (13.7-17.5) gm/L Hct (40.1-51.0) % MCV (79.0-92.2) fl MCH (25.7-32.2) pg MCHC (32.2-35.5) g/dl RDW Std Deviation (35.1-43.9) fL Plt Count (163-337) K/mm3 MPV (9.4-12.3) fl Neut % (Auto) (34.0-67.9) % Lymph % (Auto) (21.8-53.1) % Rice % (Auto) (5.3-12.2) % Eos % (Auto) (0.8-7.0) Baso % (Auto) (0.1-1.2) % Neut # (Auto) (1.78-5.38) K/mm3 Lymph # (Auto) (1.32-3.57) K/mm3 Rice # (Auto) (0.30-0.82) K/mm3 Eos # (Auto) (0.04-0.54) K/mm3 Baso # (Auto) (0.01-0.08) K/mm3 Manual Slide Review Sodium 136 (136-145) mEq/L Potassium 3.8 (3.5-5.1) mEq/L Chloride 102 (98-107) mEq/L Carbon Dioxide 25 (21-32) mEq/L Anion Gap 12.8 (5-15) BUN 34 H (7-18) mg/dL Creatinine 1.2 (0.7-1.3) mg/dL Est Cr Clr Drug Dosing 37.34 mL/min Estimated GFR (MDRD) 58 (>60) mL/min BUN/Creatinine Ratio 28.3 H (14-18) Glucose 121 H (83-115) mg/dL POC Glucose 181 H (83-110) mg/dL Calcium 9.0 (8.5-10.1) mg/dL Magnesium 1.7 L (1.8-2.4) mg/dl C-Reactive Protein 8.4 H* (<1.0) mg/dL Med Orders - Current: Current Medications Acetaminophen (Tylenol) 650 mg PO Q4H PRN PRN Reason: Pain (Mild 1-3)/fever Hydrocodone Bitart/Acetaminophen ([place] 325-5 Mg) 1 tab PO Q4H PRN PRN Reason: Pain (moderate 4-6) Aspirin (Halfprin) 81 mg PO DAILY [facility] Cephalexin (Keflex) 100 mg PO Q8HR [facility] Enoxaparin Sodium (Lovenox) 30 mg SUBCUT DAILY [facility] Finasteride (Proscar) 5 mg PO DAILY [facility] Last Admin: 08/28/18 08:10 Dose: 5 mg Magnesium Sulfate 2 gm/ Premix 50 mls @ 25 mls/hr IV ONETIME ONE Stop: 08/28/18 13:30 Insulin Human Lispro (Humalog) 0 unit SUBCUT QIDACANDBED [facility]; Protocol Last Admin: 08/28/18 10:43 Dose: 1 unit Metoprolol Tartrate (Lopressor) 12.5 mg PO BID [facility] Ondansetron HCl (Zofran Odt) 4 mg PO Q4H PRN PRN Reason: nausea, able to take PO Ondansetron HCl (Zofran) 4 mg IV Q4H PRN PRN Reason: Nausea/Vomiting Pantoprazole Sodium (Protonix) 40 mg PO DAILY@0700 [facility] Last Admin: 08/28/18 06:52 Dose: 40 mg Sodium Chloride (Saline Flush) 10 ml FLUSH ASDIRECTED PRN PRN Reason: Keep Vein Open Last Admin: 08/28/18 00:10 Dose: 10 ml Tamsulosin HCl (Flomax) 0.4 mg PO DAILY [facility] Last Admin: 08/28/18 08:10 Dose: 0.4 mg Discontinued Medications Acetaminophen (Tylenol) 975 mg PO NOW ONE Stop: 08/24/18 17:20 Last Admin: 08/24/18 17:46 Dose: 975 mg Ceftriaxone Sodium (Rocephin) 2 gm IV ONETIME ONE Stop: 08/24/18 18:54 Last Admin: 08/24/18 19:44 Dose: Not Given Furosemide (Lasix) 20 mg IVPUSH NOW ONE Stop: 08/25/18 09:20 Last Admin: 08/25/18 09:36 Dose: 20 mg Furosemide (Lasix) 20 mg IVPUSH NOW ONE Stop: 08/25/18 14:34 Last Admin: 08/25/18 14:48 Dose: 20 mg Furosemide (Lasix) 20 mg IVPUSH NOW ONE Stop: 08/26/18 05:01 Last Admin: 08/26/18 04:56 Dose: 20 mg Furosemide (Lasix) 20 mg IVPUSH BID [place] Last Admin: 08/27/18 08:13 Dose: 20 mg Heparin Sodium (Porcine) (Heparin Sodium) 5,000 units SUBCUT Q8H [facility] Last Admin: 08/25/18 09:21 Dose: Not Given Heparin Sodium (Porcine) (Heparin Sodium) 3,550 units IVPUSH .BOLUS ONE Stop: 08/25/18 08:31 Last Admin: 08/25/18 08:50 Dose: 3,550 units Heparin Sodium (Porcine) (Heparin Sodium) 5,000 units SUBCUT Q8H [facility] Last Admin: 08/28/18 10:44 Dose: 5,000 units Sodium Chloride (Normal Saline) 500 mls @ 999 mls/hr IV .BOLUS ONE Stop: 08/24/18 17:38 Last Admin: 08/24/18 17:30 Dose: 999 mls/hr Ceftriaxone Sodium 2 gm/ (Sodium Chloride) 100 mls @ 200 mls/hr IV ONETIME ONE Stop: 08/24/18 19:52 Last Admin: 08/24/18 19:38 Dose: 200 mls/hr Sodium Chloride (Normal Saline) 500 mls @ 999 mls/hr IV .BOLUS ONE Stop: 08/24/18 20:00 Last Admin: 08/24/18 19:31 Dose: 999 mls/hr Lactated Ringer's (Ringers, Lactated) Confirm Administered Dose 1,000 mls @ as directed .ROUTE .STK-MED ONE Stop: 08/24/18 21:21 Last Admin: 08/25/18 00:23 Dose: Not Given Lactated Ringer's (Ringers, Lactated) 1,000 mls @ 75 mls/hr IV ASDIRECTED [facility] Last Admin: 08/24/18 21:38 Dose: 75 mls/hr Ceftriaxone Sodium 2 gm/ (Sodium Chloride) 100 mls @ 200 mls/hr IV Q24H [place] Lactated Ringer's (Ringers, Lactated) 500 mls @ 999 mls/hr IV ONETIME ONE Stop: 08/25/18 01:29 Last Admin: 08/25/18 00:55 Dose: 999 mls/hr Lactated Ringer's (Ringers, Lactated) 1,000 mls @ 30 mls/hr IV ASDIRECTED [place] Magnesium Sulfate 4 gm/ Premix 50 mls @ 12.5 mls/hr IV ONETIME ONE Stop: 08/25/18 11:30 Last Admin: 08/25/18 07:54 Dose: 12.5 mls/hr Heparin Sodium/Dextrose (Heparin 25,000 Units In D5w 500 Ml) 25,000 units in 500 mls @ 14.2 mls/hr IV TITRATE [place]; Protocol Last Titration: 08/26/18 04:45 Dose: 775 units/hr, 15.5 mls/hr Lactated Ringer's (Ringers, Lactated) 1,000 mls @ 75 mls/hr IV ASDIRECTED [place] Meropenem/Sodium Chloride 500 (mg/ Premix) 50 mls @ 100 mls/hr IV Q8H [facility] Last Admin: 08/26/18 08:53 Dose: 100 mls/hr Vancomycin HCl 1 gm/Vancomycin HCl 250 mg/ Sodium Chloride 250 mls @ 166.667 mls/hr IV ONETIME ONE Stop: 08/25/18 09:59 Last Admin: 08/25/18 09:14 Dose: 166.667 mls/hr Vancomycin HCl 1 gm/ Sodium (Chloride) 250 mls @ 250 mls/hr IV Q24H [facility] Last Admin: 08/26/18 08:53 Dose: 250 mls/hr Cefazolin Sodium/Dextrose 1 gm (/ Premix) 50 mls @ 100 mls/hr IV Q8H [facility] Last Admin: 08/28/18 08:10 Dose: Not Given Magnesium Sulfate 4 gm/ Premix 50 mls @ 12.5 mls/hr IV ONETIME ONE Stop: 08/27/18 13:16 Last Admin: 08/27/18 10:37 Dose: 12.5 mls/hr Nifedipine (Procardia) 60 mg PO QPM [facility] Last Admin: 08/25/18 00:19 Dose: 60 mg Oxybutynin Chloride (Oxybutynin) 5 mg PO DAILY [facility] Last Admin: 08/26/18 08:53 Dose: 5 mg Potassium Chloride (Klor-Con M20) 40 meq PO ONETIME ONE Stop: 08/26/18 14:01 Last Admin: 08/26/18 15:26 Dose: 40 meq Vancomycin HCl (Pharmacy To Dose - Vancomycin) 0 dose .XX ASDIRECTED PRN PRN Reason: RX TO DOSE VANCO - Exam Quality Assessment: No: Supplemental Oxygen General: Alert, Oriented HEENT: Pupils Equal, Pupils Reactive Lungs: Clear to Auscultation, Normal Respiratory Effort Cardiovascular: Regular Rate, Regular Rhythm GI/Abdominal Exam: Normal Bowel Sounds, Soft, Non-Tender, No Distention Extremities: Normal Inspection, Normal Range of Motion, Non-Tender, No Pedal Edema Skin: Warm, Dry, Intact Neurological: No New Focal Deficit - Problem List & Annotations (1) Bladder cancer SNOMED Code(s): 713216879 Code(s): C67.9 - MALIGNANT NEOPLASM OF BLADDER, UNSPECIFIED Status: Acute Current Visit: Yes (2) Urinary tract infection SNOMED Code(s): 56501029 Code(s): N39.0 - URINARY TRACT INFECTION, SITE NOT SPECIFIED Status: Acute Current Visit: Yes Qualifiers: Urinary tract infection type: acute pyelonephritis Qualified Code(s): N10 - Acute pyelonephritis (3) Pancreatic cancer SNOMED Code(s): 907293877 Code(s): C25.9 - MALIGNANT NEOPLASM OF PANCREAS, UNSPECIFIED Status: Acute Current Visit: No Qualifiers: Pancreatic malignancy location: unspecified Qualified Code(s): C25.9 - Malignant neoplasm of pancreas, unspecified (4) Sepsis SNOMED Code(s): 93609514 Code(s): A41.9 - SEPSIS, UNSPECIFIED ORGANISM Status: Acute Current Visit : Yes (5) Non-STEMI (non-ST elevated myocardial infarction) SNOMED Code(s): 08650787 Code(s): I21.4 - NON-ST ELEVATION (NSTEMI) MYOCARDIAL INFARCTION Status: Acute Current Visit: Yes - Problem List Review Problem List Initiated/Reviewed/Updated: Yes - My Orders Last 24 Hours: My Active Orders 08/28/18 11:31 Magnesium Sulfate/Water [Magnesium Sulfate in Water Premix] 2 gm Premix Bag 1 bag IV ONETIME 08/28/18 11:45 Metoprolol Tartrate [Lopressor] 12.5 mg PO Q12H 08/28/18 14:00 cephALEXin [Keflex] 100 mg PO Q8HR 08/29/18 05:11 BASIC METABOLIC PANEL,BMP [CHEM] AM CBC WITH AUTO DIFF [HEME] AM 08/29/18 09:00 Aspirin [Halfprin] 81 mg PO DAILY Enoxaparin [Lovenox] 30 mg SUBCUT DAILY - Plan Plan:: Assessment * 83-year-old male with history of pancreatic and bladder cancer finishing chemotherapy and radiation on August 02, admitted for complicated UTI * Review of old records show that he grew out Klebsiella pneumonia from a urine done on August 03, 2018 pansensitive except to Macrobid. * urine cultures positive for Klebsiella pneumonia sensitive to Ancef * non-STEMI * Pulmonary edema - proBNP 24,000-->22,000-->23,000; clinically resolved * Hypomagnesemia * Past medical history diabetes, hypertension * chest x-ray with acute on chronic pulmonary congestion on August 26, 2018 * Patient is doing much better and off of O2. Plan * Switch to Keflex 1000 mg every 8 hours * Add low-dose beta carie metoprolol cart tray 12.5 mg every 12 hours and aspirin 81 mg daily. * Replace magnesium * stop Lasix 20 mg IV twice a day and monitor oxygen status and weight. * Lovenox 30 mg subcutaneous daily * CBC and BMP in the morning * Sliding-scale insulin * continue FiO2 to keep SPO2 greater than 90%. currently off O2 with saturations in the mid 90s * Echocardiogram result pending * PT/OT * CODE STATUS: DO NOT RESUSCITATE /DO NOT INTUBATE. I discussed this personally with the patient. * Prognosis is poor * I discussed the patient and his the gravity of his situation. I offered transfer to [place] for higher level of care versus continuing treatment here. Patient currently is doing better, blood pressures have come up, pulse has decreased, and he is resting comfortably. * patient will have a length of stay greater than 96 hours secondary to complications of non-STEMI, sepsis, and hypotension.
[2018-08-28] MEDS: Metoprolol Tartrate 25 MG Tab PO SCH ×2 (11:54→21:00)
[2018-08-28] MEDS: Cephalexin 500 MG Cap PO SCH ×2 (13:29→21:01)
[2018-08-29] MEDS: Cephalexin 500 MG Cap PO SCH ×2 (05:44→13:50)
[2018-08-29] MEDS: Insulin Lispro 100 Units/ML 3 ML Vial SUBCUT SCH ×2 (06:01→11:02)
[2018-08-29] MEDS: Pantoprazole 40 MG Tab.CR PO SCH (06:02)
[2018-08-29] MEDS: Tamsulosin 0.4 MG Cap.ER PO SCH (08:11)
[2018-08-29] MEDS: Finasteride 5 MG Tab PO SCH (08:11)
[2018-08-29] MEDS ORDERED: Metoprolol Tartrate 25 MG Tab PO SCH (08:15)
[2018-08-29] MEDS ORDERED: Aspirin 81 MG Tab.EC PO SCH (09:00)
[2018-08-29] MEDS ORDERED: Enoxaparin 40 MG/0.4 ML Syringe SUBCUT SCH (09:00)
[2018-08-29] MEDS ORDERED: Furosemide 20 MG Tab PO ONE (12:00)
--- NOTE | 2018-08-29 13:55 | PCM.DCSUM1 ---
Discharge Summary - Hospital Course HPI Initial Comments: 83-year-old male with known history of pancreatic and bladder cancer was admitted through the emergency room secondary to increasing weakness, burning in his penis, and chills. Patient was getting chemotherapy therapy and radiation until August 02, 2018 when he had his last radiation treatment. Patient states that over the last 9 days, since he stopped his Keflex for a UTI, he's had worsening symptoms. Last night he had chills and then tonight after having a fever of 99.8 he came into the emergency room. In the emergency room he was found to have, C-reactive protein of 22.5, microscopic UA WBCs too numerous to count. Brief History: on first line of admission patient developed chest tightness and PVCs. Patient became hypotensive after receiving Procardia and food boluses were given. Troponin did come back positive at 7.9 [address] showing no ST elevation. Patient was diagnosed with non-ST elevated myocardial infarction. Patient was transferred to the unit and placed on a heparin drip. Patient had an uneventful hospitalization after that night. Urine culture came back Klebsiella pneumonia sensitive to Ancef. Patient was switched to Ancef. Echocardiogram showed left ventricular internal cavity size was normal. Moderately decreased left ventricular systolic function with ejection fraction by biplane method of approximate 40%. There were multiple left ventricular regional wall motion abnormalities. Stool normal pattern of LV diastolic filling. Elongated in severely dilated left atrium. Moderate aortic valve sclerosis without stenosis. Multiple other mild valvular disease. Patient was given Lasix IV 20 mg and had good diuresis. He will be discharged on Keflex 1000 mg every 8 hours for another 10 days, metoprolol 25 mg twice a day, aspirin 81 mg daily, and Lasix 20 mg daily in addition to his home meds. I did stop his Glucotrol XL. Diagnosis: Stroke: No - Discharge Data Discharge Date: 08/29/18 Discharge Disposition: Home, Self-Care 01 Condition: Good - Discharge Diagnosis/Problem(s) (1) Bladder cancer SNOMED Code(s): 493326482 ICD Code: C67.9 - MALIGNANT NEOPLASM OF BLADDER, UNSPECIFIED Status: Acute Current Visit: Yes (2) Urinary tract infection SNOMED Code(s): 33449125 ICD Code: N39.0 - URINARY TRACT INFECTION, SITE NOT SPECIFIED Status: Acute Current Visit: Yes Qualifiers: Urinary tract infection type: acute pyelonephritis Qualified Code(s): N10 - Acute pyelonephritis (3) Pancreatic cancer SNOMED Code(s): 070294763 ICD Code: C25.9 - MALIGNANT NEOPLASM OF PANCREAS, UNSPECIFIED Status: Acute Current Visit: No Qualifiers: Pancreatic malignancy location: unspecified Qualified Code(s): C25.9 - Malignant neoplasm of pancreas, unspecified (4) Sepsis SNOMED Code(s): 29246434 ICD Code: A41.9 - SEPSIS, UNSPECIFIED ORGANISM Status: Acute Current Visit: Yes (5) Non-STEMI (non-ST elevated myocardial infarction) SNOMED Code(s): 66993802 ICD Code: I21.4 - NON-ST ELEVATION (NSTEMI) MYOCARDIAL INFARCTION Status: Acute Current Visit: Yes - Patient Summary/Data Consults: Consultations 08/24/18 22:11 OT Evaluation and Treatment [CONS] Routine PT Evaluation and Treatment [CONS] Routine 08/28/18 18:19 Consult to Manager Commercial [Consult to Diabetic Nurse Specialist] [CONS] Routine - Patient Instructions Diet: Diabetic Diet Activity: As Tolerated Driving: Do Not Drive Showering/Bathing: May Shower - Discharge Plan *PRESCRIPTION DRUG MONITORING PROGRAM REVIEWED*: Not Applicable *COPY OF PRESCRIPTION DRUG MONITORING REPORT IN PATIENT HOWIE: Not Applicable Prescriptions/Med Rec: cephALEXin [Keflex] 1,000 mg PO Q8HR #60 cap Aspirin [Halfprin] 81 mg PO DAILY #30 tab.ec Furosemide [Lasix] 20 mg PO DAILY #30 tab Metoprolol Tartrate [Lopressor] 25 mg PO Q12H #60 tablet Home Medications: Home Meds Oxybutynin 5 tab PO DAILY 06/07/18 [History] Ascorbic Acid [Vitamin C] 1,000 mg PO DAILY 08/03/18 [History] Finasteride 5 mg PO DAILY 08/03/18 [History] Pantoprazole Sodium [Protonix] 40 mg PO DAILY 08/03/18 [History] Tamsulosin HCl [Flomax] 0.4 dose PO DAILY 08/03/18 [History] Vit A/Vit C/Vit E/Zinc/Copper [Preservision] 1 tab PO DAILY 08/03/18 [History] Aspirin [Halfprin] 81 mg PO DAILY #30 tab.ec 08/29/18 [Rx] Furosemide [Lasix] 20 mg PO DAILY #30 tab 08/29/18 [Rx] Metoprolol Tartrate [Lopressor] 25 mg PO Q12H #60 tablet 08/29/18 [Rx] cephALEXin [Keflex] 1,000 mg PO Q8HR #60 cap 08/29/18 [Rx] Forms: ED Department Discharge, ED Department Discharge Referrals: Ketan Acevedo MD [Primary Care Provider] - - Discharge Summary/Plan Comment DC Time >30 min.: Yes Discharge Summary/Plan Comment: 83-year-old male with history of bladder and pancreatic carcinoma finishing chemotherapy less than one month ago was admitted for sepsis secondary to pyelonephritis and developed an acute non-ST elevated myocardial infarction on day 1 of hospitalization. patient did well overall with resumption of functional status to baseline prior to developing his UTI. Echocardiogram did show markedly decreased left ventricular systolic function with approximate EF of 40%. She did normal grade 2 pattern of LV diastolic filling. Patient discharged on Keflex 1000 mg every 8 hours for another 10 days, metoprolol tartrate 25 mg twice a day, Lasix 20 mg daily, and aspirin 81 mg daily and home meds with the exception of Glucotrol XL. He is to follow-up with his primary care provider in the next week. - General Info Date of Service: 08/29/18 Admission Dx/Problem (Free Text: Admission Diagnosis/Problem Admission Diagnosis/Problem Pyelonephritis Subjective Update: August 25, 2018 Patient is resting comfortably after a difficult night. Please see previous note for details. Patient states that his shortness of breath is much improved. He is no longer having chest pain. We started heparin drip for his non-STEMI. August 26, 2018 Patient continues to wean down on his oxygen. He is currently on only 4 L nasal cannula. He continues to diurese, but a total of 9 pound weight gain since admission. He had a good breakfast this morning and states he is feeling better. August 27, 2018 Fab continues to improve. He is now off of his O2. He is within 2 pounds of his admission weight. He denies any shortness of breath, chest pain, or edema. He states he is about back at baseline. Afebrile overnight. August 28, 2018 Patient has continued improvement. He had another pound weight loss yesterday and is without any shortness of breath, chest pain, or edema. He continues afebrile. August 29, 2018 Fab states that he is back at baseline prior to becoming ill with his urinary tract infection/pyelonephritis. Patient denies any shortness of breath, chest pain, peripheral edema, fever, chills. Functional Status: Reports: Pain Controlled - Patient Data Vitals - Most Recent: Last Vital Signs Temp 97.9 F 08/29/18 08:00 Pulse 92 08/29/18 08:26 Resp 20 08/29/18 08:00 BP 107/59 L 08/29/18 12:40 Pulse Ox 98 08/29/18 08:00 Weight - Most Recent: 126 lb I&O - Last 24 hours: Intake & Output 08/28/18 08/29/18 08/29/18 22:59 06:59 14:59 Intake Total 1080 800 Balance 1080 800 Lab Results - Last 24 hrs: Laboratory Results - last 24 hr 08/28/18 08/28/18 08/29/18 Range/Units 16:45 20:27 04:05 WBC 10.05 H (4.23-9.07) K/mm3 RBC 3.31 L (4.63-6.08) M/mm3 Hgb 9.7 L (13.7-17.5) gm/L Hct 30.1 L (40.1-51.0) % MCV 90.9 (79.0-92.2) fl MCH 29.3 (25.7-32.2) pg MCHC 32.2 (32.2-35.5) g/dl RDW Std Deviation 58.4 H (35.1-43.9) fL Plt Count 213 (163-337) K/mm3 MPV 12.8 H (9.4-12.3) fl Neut % (Auto) 64.7 (34.0-67.9) % Lymph % (Auto) 12.2 L (21.8-53.1) % Armstrong % (Auto) 17.7 H (5.3-12.2) % Eos % (Auto) 2.0 (0.8-7.0) Baso % (Auto) 0.4 (0.1-1.2) % Neut # (Auto) 6.50 H (1.78-5.38) K/mm3 Lymph # (Auto) 1.23 L (1.32-3.57) K/mm3 Armstrong # (Auto) 1.78 H (0.30-0.82) K/mm3 Eos # (Auto) 0.20 (0.04-0.54) K/mm3 Baso # (Auto) 0.04 (0.01-0.08) K/mm3 Manual Slide Review Abnormal smear Sodium (136-145) mEq/L Potassium (3.5-5.1) mEq/L Chloride (98-107) mEq/L Carbon Dioxide (21-32) mEq/L Anion Gap (5-15) BUN (7-18) mg/dL Creatinine (0.7-1.3) mg/dL Est Cr Clr Drug Dosing mL/min Estimated GFR (MDRD) (>60) mL/min BUN/Creatinine Ratio (14-18) Glucose (83-115) mg/dL POC Glucose 258 H 224 H (83-110) mg/dL Calcium (8.5-10.1) mg/dL Magnesium (1.8-2.4) mg/dl 08/29/18 08/29/18 08/29/18 Range/Units 04:05 04:05 05:43 WBC (4.23-9.07) K/mm3 RBC (4.63-6.08) M/mm3 Hgb (13.7-17.5) gm/L Hct (40.1-51.0) % MCV (79.0-92.2) fl MCH (25.7-32.2) pg MCHC (32.2-35.5) g/dl RDW Std Deviation (35.1-43.9) fL Plt Count (163-337) K/mm3 MPV (9.4-12.3) fl Neut % (Auto) (34.0-67.9) % Lymph % (Auto) (21.8-53.1) % Armstrong % (Auto) (5.3-12.2) % Eos % (Auto) (0.8-7.0) Baso % (Auto) (0.1-1.2) % Neut # (Auto) (1.78-5.38) K/mm3 Lymph # (Auto) (1.32-3.57) K/mm3 Armstrong # (Auto) (0.30-0.82) K/mm3 Eos # (Auto) (0.04-0.54) K/mm3 Baso # (Auto) (0.01-0.08) K/mm3 Manual Slide Review Sodium 135 L (136-145) mEq/L Potassium 3.6 (3.5-5.1) mEq/L Chloride 103 (98-107) mEq/L Carbon Dioxide 24 (21-32) mEq/L Anion Gap 11.6 (5-15) BUN 33 H (7-18) mg/dL Creatinine 1.4 H (0.7-1.3) mg/dL Est Cr Clr Drug Dosing 31.75 mL/min Estimated GFR (MDRD) 48 (>60) mL/min BUN/Creatinine Ratio 23.6 H (14-18) Glucose 110 (83-115) mg/dL POC Glucose 134 H (83-110) mg/dL Calcium 8.8 (8.5-10.1) mg/dL Magnesium 1.8 (1.8-2.4) mg/dl Med Orders - Current: Current Medications Acetaminophen (Tylenol) 650 mg PO Q4H PRN PRN Reason: Pain (Mild 1-3)/fever Hydrocodone Bitart/Acetaminophen ([place] 325-5 Mg) 1 tab PO Q4H PRN PRN Reason: Pain (moderate 4-6) Aspirin (Halfprin) 81 mg PO DAILY [facility] Last Admin: 08/29/18 08:11 Dose: 81 mg Cephalexin (Keflex) 1,000 mg PO Q8HR [facility] Last Admin: 08/29/18 13:50 Dose: 1,000 mg Enoxaparin Sodium (Lovenox) 40 mg SUBCUT DAILY [facility] Last Admin: 08/29/18 08:11 Dose: 40 mg Finasteride (Proscar) 5 mg PO DAILY [facility] Last Admin: 08/29/18 08:11 Dose: 5 mg Insulin Human Lispro (Humalog) 0 unit SUBCUT QIDACANDBED [facility]; Protocol Last Admin: 08/29/18 11:02 Dose: Not Given Metoprolol Tartrate (Lopressor) 25 mg PO Q12H [facility] Last Admin: 08/29/18 08:26 Dose: 25 mg Ondansetron HCl (Zofran Odt) 4 mg PO Q4H PRN PRN Reason: nausea, able to take PO Ondansetron HCl (Zofran) 4 mg IV Q4H PRN PRN Reason: Nausea/Vomiting Pantoprazole Sodium (Protonix) 40 mg PO DAILY@0700 [facility] Last Admin: 08/29/18 06:02 Dose: 40 mg Sodium Chloride (Saline Flush) 10 ml FLUSH ASDIRECTED PRN PRN Reason: Keep Vein Open Last Admin: 08/28/18 00:10 Dose: 10 ml Tamsulosin HCl (Flomax) 0.4 mg PO DAILY [facility] Last Admin: 08/29/18 08:11 Dose: 0.4 mg Discontinued Medications Acetaminophen (Tylenol) 975 mg PO NOW ONE Stop: 08/24/18 17:20 Last Admin: 08/24/18 17:46 Dose: 975 mg Ceftriaxone Sodium (Rocephin) 2 gm IV ONETIME ONE Stop: 08/24/18 18:54 Last Admin: 08/24/18 19:44 Dose: Not Given Furosemide (Lasix) 20 mg IVPUSH NOW ONE Stop: 08/25/18 09:20 Last Admin: 08/25/18 09:36 Dose: 20 mg Furosemide (Lasix) 20 mg IVPUSH NOW ONE Stop: 08/25/18 14:34 Last Admin: 08/25/18 14:48 Dose: 20 mg Furosemide (Lasix) 20 mg IVPUSH NOW ONE Stop: 08/26/18 05:01 Last Admin: 08/26/18 04:56 Dose: 20 mg Furosemide (Lasix) 20 mg IVPUSH BID [facility] Last Admin: 08/27/18 08:13 Dose: 20 mg Furosemide (Lasix) 20 mg PO ONETIME ONE Stop: 08/29/18 12:01 Last Admin: 08/29/18 12:04 Dose: 20 mg Heparin Sodium (Porcine) (Heparin Sodium) 5,000 units SUBCUT Q8H [facility] Last Admin: 08/25/18 09:21 Dose: Not Given Heparin Sodium (Porcine) (Heparin Sodium) 3,550 units IVPUSH .BOLUS ONE Stop: 08/25/18 08:31 Last Admin: 08/25/18 08:50 Dose: 3,550 units Heparin Sodium (Porcine) (Heparin Sodium) 5,000 units SUBCUT Q8H [facility] Last Admin: 08/28/18 10:44 Dose: 5,000 units Sodium Chloride (Normal Saline) 500 mls @ 999 mls/hr IV .BOLUS ONE Stop: 08/24/18 17:38 Last Admin: 08/24/18 17:30 Dose: 999 mls/hr Ceftriaxone Sodium 2 gm/ (Sodium Chloride) 100 mls @ 200 mls/hr IV ONETIME ONE Stop: 08/24/18 19:52 Last Admin: 08/24/18 19:38 Dose: 200 mls/hr Sodium Chloride (Normal Saline) 500 mls @ 999 mls/hr IV .BOLUS ONE Stop: 08/24/18 20:00 Last Admin: 08/24/18 19:31 Dose: 999 mls/hr Lactated Ringer's (Ringers, Lactated) Confirm Administered Dose 1,000 mls @ as directed .ROUTE .STK-MED ONE Stop: 08/24/18 21:21 Last Admin: 08/25/18 00:23 Dose: Not Given Lactated Ringer's (Ringers, Lactated) 1,000 mls @ 75 mls/hr IV ASDIRECTED [place] Last Admin: 08/24/18 21:38 Dose: 75 mls/hr Ceftriaxone Sodium 2 gm/ (Sodium Chloride) 100 mls @ 200 mls/hr IV Q24H [facility] Lactated Ringer's (Ringers, Lactated) 500 mls @ 999 mls/hr IV ONETIME ONE Stop: 08/25/18 01:29 Last Admin: 08/25/18 00:55 Dose: 999 mls/hr Lactated Ringer's (Ringers, Lactated) 1,000 mls @ 30 mls/hr IV ASDIRECTED [place] Magnesium Sulfate 4 gm/ Premix 50 mls @ 12.5 mls/hr IV ONETIME ONE Stop: 08/25/18 11:30 Last Admin: 08/25/18 07:54 Dose: 12.5 mls/hr Heparin Sodium/Dextrose (Heparin 25,000 Units In D5w 500 Ml) 25,000 units in 500 mls @ 14.2 mls/hr IV TITRATE [facility]; Protocol Last Titration: 08/26/18 04:45 Dose: 775 units/hr, 15.5 mls/hr Lactated Ringer's (Ringers, Lactated) 1,000 mls @ 75 mls/hr IV ASDIRECTED [place] Meropenem/Sodium Chloride 500 (mg/ Premix) 50 mls @ 100 mls/hr IV Q8H [facility] Last Admin: 08/26/18 08:53 Dose: 100 mls/hr Vancomycin HCl 1 gm/Vancomycin HCl 250 mg/ Sodium Chloride 250 mls @ 166.667 mls/hr IV ONETIME ONE Stop: 08/25/18 09:59 Last Admin: 08/25/18 09:14 Dose: 166.667 mls/hr Vancomycin HCl 1 gm/ Sodium (Chloride) 250 mls @ 250 mls/hr IV Q24H [facility] Last Admin: 08/26/18 08:53 Dose: 250 mls/hr Cefazolin Sodium/Dextrose 1 gm (/ Premix) 50 mls @ 100 mls/hr IV Q8H [facility] Last Admin: 08/28/18 08:10 Dose: Not Given Magnesium Sulfate 4 gm/ Premix 50 mls @ 12.5 mls/hr IV ONETIME ONE Stop: 08/27/18 13:16 Last Admin: 08/27/18 10:37 Dose: 12.5 mls/hr Magnesium Sulfate 2 gm/ Premix 50 mls @ 25 mls/hr IV ONETIME ONE Stop: 08/28/18 13:30 Last Admin: 08/28/18 11:54 Dose: 25 mls/hr Metoprolol Tartrate (Lopressor) 12.5 mg PO BID [facility] Last Admin: 08/28/18 21:00 Dose: 12.5 mg Nifedipine (Procardia) 60 mg PO QPM [facility] Last Admin: 08/25/18 00:19 Dose: 60 mg Oxybutynin Chloride (Oxybutynin) 5 mg PO DAILY [facility] Last Admin: 08/26/18 08:53 Dose: 5 mg Potassium Chloride (Klor-Con M20) 40 meq PO ONETIME ONE Stop: 08/26/18 14:01 Last Admin: 08/26/18 15:26 Dose: 40 meq Vancomycin HCl (Pharmacy To Dose - Vancomycin) 0 dose .XX ASDIRECTED PRN PRN Reason: RX TO DOSE VANCO - Exam Quality Assessment: Denies: Supplemental Oxygen General: Reports: Alert, Oriented HEENT: Reports: Pupils Equal Neck: Reports: Supple Lungs: Reports: Clear to Auscultation, Normal Respiratory Effort Cardiovascular: Reports: Regular Rate, Regular Rhythm GI/Abdominal Exam: Normal Bowel Sounds, Soft, Non-Tender, No Distention Extremities: Normal Inspection, Normal Range of Motion, Non-Tender, No Pedal Edema Skin: Reports: Warm, Dry, Intact Psy/Mental Status: Reports: Alert, Normal Affect, Normal Mood
== END 2018-08-29 15:40 | disposition home or self-care (01) | DRG 871 ==
LOC: JD.ED 16:49 → JD.MS 20:30 → JD.ICU 08-25 06:59
PROVIDERS: ADMIT Family Medicine; ATTEND Family Medicine
DX: A41.9 Sepsis, unspecified organism (principal); I21.4 Non-ST elevation (NSTEMI) myocardial infarction; C25.9 Malignant neoplasm of pancreas, unspecified; N39.0 Urinary tract infection, site not specified; N10 Acute pyelonephritis; C67.9 Malignant neoplasm of bladder, unspecified; Z66 Do not resuscitate; B96.1 Klebsiella pneumoniae [K. pneumoniae] as the cause of diseases classified elsewhere; H35.30 Unspecified macular degeneration; M19.90 Unspecified osteoarthritis, unspecified site; M81.0 Age-related osteoporosis without current pathological fracture; I10 Essential (primary) hypertension; M54.5 Low back pain; G89.29 Other chronic pain; E83.42 Hypomagnesemia; Z90.49 Acquired absence of other specified parts of digestive tract; Z90.81 Acquired absence of spleen; Z87.891 Personal history of nicotine dependence; Z79.82 Long term (current) use of aspirin; E11.9 Type 2 diabetes mellitus without complications; Z85.51 Personal history of malignant neoplasm of bladder; Z88.8 Allergy status to other drugs, medicaments and biological substances; Z85.07 Personal history of malignant neoplasm of pancreas; Z92.21 Personal history of antineoplastic chemotherapy; Z92.3 Personal history of irradiation; Z79.899 Other long term (current) drug therapy; Z88.5 Allergy status to narcotic agent; Z91.018 Allergy to other foods
CPT/HCPCS: 36415; 71045; 80053; 81001; 83605; 85007; 85027; 86140; 87086; 87088; 87186; 96361; 96365; 99285; A9270; J0696; J7030; J7040 ×2; 36600; 76770; 76770-26; 80048; 80061; 82550; 82553; 82803; 82962; 83036; 83735; 83880; 84443; 84484; 85025; 85730; 93005; 93306; 97110-GP; 97116-GP; 97162-GP; 97165-GO; 97530-GO; 99284; J0690; J1644; J1650; J1815-GY; J1940; J2185; J3370; J3475; J7050; J7120